=== PATIENT | female | born 1950 | race Caucasian/White ===

== ENCOUNTER → 2017-09-18 06:52 | Outpatient (CLI) | payer MEDICAID, SELFPAY ==
--- NOTE | 2017-09-18 10:15 | STRESSREP ---
Stress Test Report Pharmacologic myocardial perfusion stress test. 66-year-old male with a history of chest pain. Stress protocol: Resting EKG demonstrates normal sinus rhythm with a rate of 69 bpm normal intervals and noted resting blood pressure is 118/80 mmHg. 0.4 mg of regadenoson was infused per usual protocol followed by rapid intravenous saline flush injection. Continuous EKG monitoring was performed. She maintained sinus rhythm throughout the recording. At rest there were no ST or T-wave changes noted suggest abnormal flow reserve at peak infusion no ST or T-wave changes were noted suggest abnormal flow reserve. Resting blood pressure was 118/80 final blood pressure is 120/68 mmHg. Myocardial perfusion protocol: 11.7 mCi of technetium 99m sestamibi was injected at rest. 0.4 mg of adenosine was infused per usual protocol. Peak infusion 32.9 mCi of technetium 99m sestamibi was injected stress images were obtained stress and rest images were reconstructed and compared in the short axis vertical long and horizontal long axis. Gated images were also obtained. Perfusion SPECT analysis: Review of the stress images demonstrate normal uptake of tracer noted in all areas of the myocardium. The resting images similarly demonstrate normal uptake of tracer noted in all areas of myocardium. No areas of reversibility are noted suggest ischemia no previous infarct is noted. Gated SPECT analysis. The gated ejection fraction is noted to be 72%. Conclusion: Normal pharmacologic myocardial perfusion stress test. Preserved ejection fraction.
== END ==
PROVIDERS: Family Provider Family Medicine; PCP Family Medicine; Visit Provider Internal Medicine Cardiovascular Disease
DX: I25.10 Atherosclerotic heart disease of native coronary artery without angina pectoris (principal); I10 Essential (primary) hypertension
CPT/HCPCS: 78452; 93017; A9500; A4216; J2785

== ENCOUNTER → 2018-01-22 07:02 | Outpatient (CLI) | payer MEDICARE, OTHER, SELFPAY ==
[2018-01-22 10:02] LABS: Erythrocyte Sedimentation Rate < 1 mm/hr (0-30)
--- NOTE | 2018-01-22 12:14 | EEG ---
- Electroencephalogram Date of service 01/22/2018 History EEG is being done in this 67 yr F to rule out seizures EEG Description: This is an 18 channel EEG with 10-20 lead placement system. Bipolar montages, Referential and Circumferential montages were reviewed. Photic stimulation and Hyperventilation were performed. The posterior dominant background rhythm is 8 HZ synchronous, symmetric, reacting to eye opening and closing. Photo stimulation elicited normal driving response but no abnormal photoparoxysmal response, Hyperventilation did not elicit any abnormal photoparoxysmal response. EKG artifact noted during the record. Sleep was identified. There was no epileptiform discharges or electrographic seizures noted during this recording. EEG Interpretation This is a normal awake and asleep EEG. There is no epileptiform discharges or electrographic seizures noted during the record.
== END ==
PROVIDERS: Family Provider Family Medicine; PCP Family Medicine; Visit Provider Psychiatry & Neurology Neurology
DX: R55 Syncope and collapse (principal); I49.9 Cardiac arrhythmia, unspecified; Z86.73 Personal history of transient ischemic attack (TIA), and cerebral infarction without residual deficits
CPT/HCPCS: 36415; 85652; 95819

== ENCOUNTER 2018-07-10 09:31 | Observation (INO) | payer MEDICARE, OTHER, SELFPAY ==
[2018-07-10] VITALS (17 sets, daily range): BP systolic 87–162; BP diastolic 49–80; PULSE 79–110; RESP 12–20; TEMP 36.6–37.2; O2SAT 99–100; BMI 23.6; BMI 23.8
--- NOTE | 2018-07-10 09:45 | EKG12_ITS ---
Test Reason : ABNORMAL LABS Blood Pressure : / mmHG Vent. Rate : 096 BPM Atrial Rate : 096 BPM P-R Int : 158 ms QRS Dur : 074 ms QT Int : 332 ms P-R-T Axes : 072 038 073 degrees QTc Int : 419 ms Normal sinus rhythm Normal ECG Confirmed by MATT SAUNDERS, ASHLEY ([id number]), communications editor DIANE XIAO ([id number] on 07/13/2018 9:00:18 AM Referred By: ROLANDA Confirmed By:ASHLEY GUTIERREZ MD
[2018-07-10] MEDS: 0.9% Normal Saline 1,000 ML 1000 ML IV (10:04)
[2018-07-10 10:12] LABS: Absolute Lymphocyte Count 1.23 X10^3/ul (0.83-4.51); Absolute Neutrophil Count 4.8 X10^3/uL (2.0-7.7); Basophil# 0.03 X10^3/uL; Basophil% 0.4 % (0-1); Differential Indicated SCAN CRITERIA MET; Eosinophil# 0.26 X10^3/uL; Eosinophils% 3.8 % (0-5); Hematocrit 25.6 % (37-47); Hemoglobin 7.4 g/dl (12.0-15.0); Lymphocyte # 1.23 X10^3/ul (4.0); Lymphocyte % 18.1 % (19-41); Mean Corp Hgb Conc 28.9 g/gl (32-36); Mean Corpuscular Hgb 30.1 pg (27.0-32.0); Mean Corpuscular Volume 104.1 fL (81-99); Mean Platelet Vol. 9.9 fl (6.2-12.0); Monocyte# 0.52 X10^3/uL; Monocyte% 7.6 % (0-10); Neutrophil # 4.75 X10^3/uL (2.7-7.7); Neutrophil % 69.8 % (47-70); POSITIVE COUNT NO; POSITIVE DIFFERENTIAL NO; POSITIVE MORPHOLOGY YES; Platelet Count 291 K/mm3 (150-450); RBC Distribution Width CV 19.5 % (11.6-14.6); RBC Distribution Width SD 73.5 fl (35.1-43.9); Red Blood Count 2.46 M/mm3 (4.2-5.4); White Blood Count 6.8 K/mm3 (4.4-11.0)
[2018-07-10 10:28] LABS: Anion Gap 9 (5-15); BUN 18 mg/dL (7-18); BUN/Creat Ratio 22.3 RATIO (10-20); Chloride 112 mmol/L (98-107); Creatinine, Serum 0.81 mg/dL (0.55-1.02); EST Glomerular Filtration Rate 76 mL/min (>60); Est Glom Filt Rate - Afr Amer 92 mL/min (>60); Estimated Creatinine Clearance 67.34 ml/min; Glucose 98 mg/dL (74-106); Potassium 4.1 mmol/L (3.5-5.1); Sodium Level 143 mmol/L (136-145)
[2018-07-10 10:33] LABS: Anisocytosis 2+; Hypochromasia 2+; Polychromasia 1+
--- NOTE | 2018-07-10 10:42 | NURSING ---
DR MADELIN ORANTES
--- NOTE | 2018-07-10 10:44 | ED.VISSUMM ---
- ER Visit Summary Date of Service: 07/10/18 Chief Complaint: [Low hemoglobin] History of Present Illness: The patient is a 67 F [resents the emergency department with complaint of a low hemoglobin. Patient was advised by nursing staff and her primary care physician's office to present to the emergency department for evaluation. Patient states that she had been complaining over the last 2 weeks of feeling dizzy as well as short of breath with activity and generally weak therefore she had some blood work performed yesterday. Patient has a history of anemia. Patient had last colonoscopy about [address] Alberto Ibarra and apparently no etiology was noted for bleeding. Patient has history of prior stroke, coronary artery disease, diabetes, hypertension, high cholesterol, bipolar disorder, and schizoaffective disorder. Patient denies any abdominal pain. She denies recent illness. She denies any chest pain.] Physical Examination: [HEENT-PERRLA, EOMI. Cranial nerves II through XII grossly intact. TMs clear. Mucous membranes moist. No adenopathy. Cardiovascular-regular rate and rhythm without murmur or ectopy Lungs-clear to auscultation, chest wall stable without crepitus or subcu emphysema Abdomen-normoactive bowel sounds, soft, nontender, no rebound or rigidity, no peritoneal signs. Rectal exam-no external evidence of bleeding noted. No fissures noted. Stool was dark. No masses palpated in the rectal vault. Extremities-intact ?4, normal range of motion, normal pulses, atraumatic] Test Results: [CBC with differential obtained showed a white blood cell count 6.8, hemoglobin 7.4, hematocrit 26, platelets 291. Chemistries unremarkable. Troponin is less than 0.015. EKG shows sinus rhythm with a ventricular rate of 96 bpm with no acute I segment changes. Orthostatic vital signs were positive and that patient was dizzy with standing. Hemoccult stool is pending.] Emergency Department Course and Treatment: [Patient was type and screen and then type and cross for 2 units of packed red cells. Patient on arrival was noted to be hypotensive with a systolic of 89 and a diastolic of 49. Patient initially was tachycardic with a heart rate of 110.] Treatment Plan: [Admit for blood transfusion] Disposition: [Admit] Impression: [Symptomatic anemia Hypotension] This note was generated with [employer] dictation software. It may contain incorrect words, spelling, and punctuation that were not noted in review of the chart prior to signing ED Disposition - Plan for ED Patient: Chief Complaint: Abn Labs Referrals: Roberto Mcgill MD [Primary Care Provider] -
--- NOTE | 2018-07-10 10:48 | ED.DCSUM_ITS ---
- ER Visit Summary Date of Service: 07/10/18 Chief Complaint: [Low hemoglobin] History of Present Illness: The patient is a 67 F [resents the emergency department with complaint of a low hemoglobin. Patient was advised by nursing staff and her primary care physician's office to present to the emergency dep artment for evaluation. Patient states that she had been complaining over the last 2 weeks of feeling dizzy as well as short of breath with activity and generally weak therefore she had some blood work performed yesterday. Patient has a history of anemia. Patient had last colonoscopy about [address] Alberto Ibarra and apparently no etiology was noted for bleeding. Patient has history of prior stroke, coronary artery disease, diabetes, hypertension, high cholesterol, bipolar disorder, and schizoaffective disorder. Patient denies any abdominal pain. She denies recent illness. She denies any chest pain.] Physical Examination: [HEENT-PERRLA, EOMI. Cranial nerves II through XII grossly intact. TMs clear. Mucous membranes moist. No adenopathy. Cardiovascular-regular rate and rhythm without murmur or ectopy Lungs-clear to auscultation, chest wall stable without crepitus or subcu emphysema Abdomen-normoactive bowel sounds, soft, nontender, no rebound or rigidity, no peritoneal signs. Rectal exam-no external evidence of bleeding noted. No fissures noted. Stool was dark. No masses palpated in the rectal vault. Extremities-intact ?4, normal range of motion, normal pulses, atraumatic] Test Results: [CBC with differential obtained showed a white blood cell count 6.8, hemoglobin 7.4, hematocrit 26, platelets 291. Chemistries unremarkable. Troponin is less than 0.015. EKG shows sinus rhythm with a ventricular rate of 96 bpm with no acute I segment changes. Orthostatic vital signs were positive and that patient was dizzy with standing. Hemoccult stool is pending.] Emergency Department Course and Treatment: [Patient was type and screen and then type and cross for 2 units of packed red cells. Patient on arrival was noted to be hypotensive with a systolic of 89 and a diastolic of 49. Patient initially was tachycardic with a heart rate of 110.] Treatment Plan: [Admit for blood transfusion] Disposition: [Admit] Impression: [Symptomatic anemia Hypotension] This note was generated with Dragon dictation software. It may contain incorrect words, spelling, and punctuation that were not noted in review of the chart prior to signing ED Disposition - Plan for ED Patient: Chief Complaint: Abn Labs Referrals: Roberto Mcgill MD [Primary Care Provider] -
--- NOTE | 2018-07-10 10:49 | PCM.HP.STD ---
Problem List (1) Severe anemia Status: Acute (2) Bipolar disorder Status: Chronic (3) CVA (cerebral infarction) Status: Chronic Comment: Left cerebellar stroke (4) Chronic pain syndrome Status: Chronic (5) Diabetes type 2, controlled Status: Chronic (6) Hyperlipidemia Status: Chronic (7) Hypertension Status: Chronic (8) Overweight (BMI 25.0-29.9) Status: Resolved (9) Schizoaffective disorder Status: Chronic (10) Hypophosphatemia Status: Acute History of Present Illness Date of Admission: 07/10/18 Chief Complaint: dizziness, told by PCP to come to the hospital due to a low HGB The patient is a 67 year old F with a past medical history of hypertension, diabetes mellitus type 2, migraine cephalgia, bipolar disorder, LVH, schizoaffective disorder, 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 Extensive W/U in the past has been negative and she sees Dr. Irwin for iron infusions. Sent to the ED today by PCP for low HGB. She was c/o lightheadedness in the ED but this resolved with fluids. HGB in the ER is 7.4 with macrocytic indices. She denies chest pain, shortness of breath, abdominal pain, nausea, vomiting, diarrhea. She tells me she has a bowel movement every 2-3 days and it is formed. It is somewhat dark but stool in the ER was Hemoccult negative. Her last transfusion was about 5 years ago she states. Her only new medication is an injection she gets from neurology for migraine cephalgia. She was initially tachycardic but this has resolved with fluids. The initial blood pressure was 99/52 lying down and 109/54 standing up. Orthostatic vital signs were negative. Past Medical History Past Medical History (Chronic Problems): Chronic Problems Chronic pain syndrome (Chronic) Hyperlipidemia (Chronic) CVA (cerebral infarction) (Chronic) Left cerebellar stroke Bipolar disorder (Chronic) Schizoaffective disorder (Chronic) Hypertension (Chronic) Diabetes type 2, controlled (Chronic) Allergies carbamazepine [From Tegretol] Allergy (Verified 07/10/18 09:36) Fever and skin rash Penicillins Allergy (Verified 07/10/18 09:36) Rash venom-honey bee [bee venom (honey bee)] Allergy (Verified 07/10/18 09:36) Anaphylaxis ibuprofen [From Motrin] Adverse Reaction (Verified 07/10/18 09:36) Upset Stomach Home Medications: Ambulatory Orders Medication Instructions Recorded Metformin HCl [Glucophage] 1,000 mg PO BIDCM 03/10/14 Risperidone [Risperdal] 2 mg PO QHS 03/10/14 Bupropion HCl [Wellbutrin Sr] 200 mg PO BID 03/07/15 Polyethylene Glycol 3350 [Miralax] 17 gm PO DAILY PRN PRN 03/07/15 Sertraline HCl [Zoloft] 50 mg PO DAILY 03/07/15 Gabapentin 300 mg PO TID 07/12/15 Insulin Glargine [Lantus (BKC)] 4 units SC QHS 06/20/16 Clopidogrel Bisulfate [Plavix] 75 mg PO DAILY 04/13/17 Omeprazole [Prilosec] 40 mg PO DAILY 04/13/17 Pyridoxine HCl [Vitamin B-6] 1 tab PO DAILY 04/13/17 Topiramate [Topamax] 150 mg PO BID 07/10/18 Surgical History: - - Multiple surgeries on right hand Cholecystectomy Appendectomy [facility] Psychiatric History: Bipolar, Post traumatic stress 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 Denies: Chest Pain, Palpitations Respiratory: Denies: Cough, Shortness of breath at rest, Sputum production Gastrointestinal: Denies: Abdominal Pain, Nausea, Vomiting Genitourinary: Denies: Dysuria Musculoskeletal: Denies: Joint Pain, Joint Tenderness Skin: Denies: Rash, Wounds Neurological: Denies: Numbness, Tingling, Focal weakness Psychiatric: Denies: Anxiety, Depression, Homicidal Ideations, Suicidal Ideations Endocrine: Denies: Change in Body Habitus Hematologic/ Lymphatic: Denies: Easy Bruising, Easy Bleeding, Hx of blood clot VTE Information - Inpt Only VTE Present on Admission: No VTE Mechan Device Prophylaxis: None VTE Pharm Prophylaxis ordered?: No Reason prophylaxis not ordered:: Treatment Not Indicated - pt will be discharged today after 2 units of blood have been transfused Patient Problems: Active and Suspected Problems Severe anemia (Acute) Hypophosphatemia (Acute) - Physical Exam General: Alert, Oriented x3, Cooperative, - - pale, not diaphoretic HEENT: Atraumatic, PERRLA, EOMI, Normocephalic Oral: Moist Mucosa Neck: Supple, No JVD, Negative Carotid Bruits, Trachea Midline Lungs: Clear to auscultation, Normal air movement Cardiovascular: Regular rate, Regular Rhythm, No Ectopic Activity, Murmur - She has a systolic MM 2/6 at the second RICS and this radiates to the LVOT and the LLSB and the apex. There is also a systolic MM in the left axilla, No rub noted, No Gallop Abdomen: Bowel Sounds Present, Soft, Non Tender, Non-Distended Extremities: No clubbing, No cyanosis, No edema, Capillary Refill Less than 3 Seconds, No Calf Tenderness, Peripheral Pulses Normal Skin: No rashes, No breakdown Musculoskeletal: No Tenderness to Palpation of Joints or Extremities Neurological: Cranial nerves II-XII grossly intact, Neuro grossly intact Psych/Mental Status: Normal Affect, Appropriate Vital Signs Temp Pulse Resp BP Pulse Ox 99.0 F 95 16 113/55 L 100 07/10/18 10:13 07/10/18 10:13 07/10/18 10:13 07/10/18 10:13 07/10/18 10:13 Oxygen Delivery Method Room Air Weight: 151 lb Body Mass Index (BMI) 23.6 Finger Stick Blood Glucose 180 Laboratory Tests Past 24 Hrs 07/10/18 07/10/18 07/10/18 10:00 10:00 10:00 WBC 6.8 RBC 2.46 L Hgb 7.4 L Hct 25.6 L MCV 104.1 H MCH 30.1 MCHC 28.9 L RDW 19.5 H RDW Differential 73.5 H Plt Count 291 MPV 9.9 Immature Gran % (Auto) 0.300 Neut % (Auto) 69.8 Lymph % (Auto) 18.1 L [place] % (Auto) 7.6 Eos % (Auto) 3.8 Baso % (Auto) 0.4 Absolute Neuts (auto) 4.8 Absolute Lymphs (auto) 1.23 Total Counted Not Reportable Polychromasia 1+ Hypochromasia 2+ Anisocytosis 2+ Sodium 143 Potassium 4.1 Chloride 112 H Carbon Dioxide 22.0 Anion Gap 9 BUN 18 Creatinine 0.81 Estim Creat Clear Calc 67.34 Est GFR (MDRD) Af Amer 92 Est GFR (MDRD) Non-Af 76 BUN/Creatinine Ratio 22.3 H Glucose 98 Calcium 8.0 L Troponin I < 0.015 Blood Type Pending Antibody Screen Pending Assessment/Plan All Active Problems Severe anemia (Acute) Hypophosphatemia (Acute) Overweight (BMI 25.0-29.9) (Resolved) Impressions 1. symptomatic severe anemia 2. Hx of recurrent anemia - gets iron infusions from Dr. Irwin, has had extensive W/U in the past 3. Bipolar disorder 4. schizoaffective disorder 5. DM II - HGBA1C is only 3.5 - likely getting hypoglycemic at home 6. HX of CVA 7. Hypertension 8. Hyperlipidemia 9. Chronic pain syndrome 10. Left ventricular hypertrophy Feeling better with IV fluids and currently denies dizziness, no CP and no SOB Reticulocyte count is appropriately increased and the ferritin is 77......no microcytes. No diarrhea, no N/V, BS's not hyperactive, having a BM every 2-3 days and no blood. Hemoccult stool is negative. Transfused 2 units of packed red blood cells and then discharge the patient home. She will follow-up with Dr. Mcgill on Thursday. Code Visit OBSV E&M: 17807 Initial observation care L2
--- NOTE | 2018-07-10 10:54 | NURSING ---
MED SURG SEVERE ANEMIA, DIZZINESS, HYPOTENSION SEMENTI
[2018-07-10 12:50] LABS: Immature Platelet Fraction 4.7 % (1.0-7.9); RET-HE 22.8 pg (30-35)
[2018-07-10 13:12] LABS: Phosphorus 1.9 mg/dL (2.5-4.9)
[2018-07-10 13:17] LABS: AST(SGOT) 14 U/L (15-37); Alanine Aminotransfer ALT/SGPT 25 U/L (13-56); Albumin, Serum 3.2 g/dL (3.2-5.0); Alkaline Phosphatase 68 U/L (45-117); Bilirubin, Direct 0.07 mg/dL (0.00-0.30); Ferritin 77 ng/mL (8-252); Globulin 2.2 g/dL (2.2-4.2); Iron 43 ug/dL (50-170); Iron Binding Capacity,Total 270 ug/dL (250-450); Magnesium 2.2 mg/dL (1.6-2.6); PERCENT IRON SATURATION 15.9 % (15.0-55.0); Protein, Total 5.4 g/dL (6.4-8.2)
[2018-07-10 13:50] LABS: Hemoglobin A1c < 3.5 % (4.2-6.3)
--- NOTE | 2018-07-10 15:11 | DCINST_ITS ---
- Discharge Diagnoses Current Active Problems: Current Active and Chronic Problems Severe anemia (Acute) Hypophosphatemia (Acute) You will use the following diet at home:: Other - Resume previous diet Your food should be the consistency of: Regular Your liquids should be the consistency of: Regular/Thin Discharge Activity: - - To be as tolerated Call your doctor if you observe: Fever of 101 or Higher, Shortness of breath, Dizziness, Fainting spells, Swelling in the ankles, Chest pain Additional Instructions: 1. Your HGBA1C is only 3.5. I suspect you are having low blood sugars at home. Please talk to Dr. Mcgill about this. He may want to decrease your medications. 2. Follow up with Dr. Mcgill on Thursday. Allergies/Adverse Reactions: Allergies carbamazepine [From Tegretol] Allergy (Verified 07/10/18 12:58) Fever and skin rash Penicillins Allergy (Verified 07/10/18 12:58) Rash venom-honey bee [bee venom (honey bee)] Allergy (Verified 07/10/18 12:58) Anaphylaxis ibuprofen [From Motrin] Adverse Reaction (Verified 07/10/18 12:58) Upset Stomach Medications to take at Discharge Metformin HCl [Glucophage] 1,000 mg PO BIDCM 03/10/14 Risperidone [Risperdal] 2 mg PO QHS 03/10/14 Bupropion HCl [Wellbutrin Sr] 200 mg PO BID 03/07/15 Polyethylene Glycol 3350 [Miralax] 17 gm PO DAILY PRN PRN 03/07/15 Sertraline HCl [Zoloft] 50 mg PO DAILY 03/07/15 Gabapentin 300 mg PO TID 07/12/15 Insulin Glargine [Lantus SoloStar Pen] 4 units SC QHS 06/20/16 Clopidogrel Bisulfate [Plavix] 75 mg PO DAILY 04/13/17 Omeprazole [Prilosec] 40 mg PO DAILY 04/13/17 Pyridoxine HCl [Vitamin B6] 1 tab PO DAILY 04/13/17 Topiramate [Topamax] 150 mg PO BID 07/10/18 Primary Care Physician: Roberto Mcgill MD [Primary Care Provider] - Test Results: Test results from this visit will be discussed in further detail at your follow- up appointment, if applicable. Proposed Discharge Date: 07/10/18
--- NOTE | 2018-07-10 15:13 | PCM.DC.SUM ---
Discharge Date and Diagnosis Date of Admission: 07/10/18 Date of Discharge: 07/10/18 - Primary Discharge Diagnosis Active and Suspected Problems Severe Symptomatic anemia (Acute) Hypophosphatemia (Acute) - Secondary Discharge Diagnosis Chronic Problems Chronic pain syndrome (Chronic) Hyperlipidemia (Chronic) CVA (cerebral infarction) (Chronic) Left cerebellar stroke - 2014 Bipolar disorder (Chronic) Schizoaffective disorder (Chronic) Hypertension (Chronic) Diabetes type 2, controlled (Chronic) - HGBA1C is 3.5% Hx of recurrent anemia - W/U negative in the past Hospital Course and Treatment Imaging Results: Laboratory Results - last 24 hr 07/10/18 07/10/18 10:00 21:25 POC Glucose 82 Crossmatch See Detail Laboratory Tests 07/10/18 07/10/18 07/10/18 Range/Units 21:25 16:00 12:33 WBC (4.4-11.0) K/mm3 RBC (4.2-5.4) M/mm3 Hgb (12.0-15.0) g/dl Hct (37-47) % MCV (81-99) fL MCH (27.0-32.0) pg MCHC (32-36) g/gl RDW (11.6-14.6) % RDW Differential (35.1-43.9) fl Plt Count (150-450) K/mm3 MPV (6.2-12.0) fl Immature Gran % (Auto) (0.0-0.9) % Neut % (Auto) (47-70) % Lymph % (Auto) (19-41) % [place] % (Auto) (0-10) % Eos % (Auto) (0-5) % Baso % (Auto) (0-1) % Absolute Neuts (auto) (2.0-7.7) X10^3/uL Absolute Lymphs (auto) (0.83-4.51) X10^3/ul Total Counted Immature Plt Fraction (1.0-7.9) % Polychromasia Hypochromasia Anisocytosis Retic Count (0.5-1.5) % Immature Retic Fraction (3.00-15.90) % Retic Hgb Equivalent (30-35) pg Sodium (136-145) mmol/L Potassium (3.5-5.1) mmol/L Chloride (98-107) mmol/L Carbon Dioxide (21.0-32.0) mmol/L Anion Gap (5-15) BUN (7-18) mg/dL Creatinine (0.55-1.02) mg/dL Estim Creat Clear Calc ml/min Est GFR (MDRD) Af Amer (>60) mL/min Est GFR (MDRD) Non-Af (>60) mL/min BUN/Creatinine Ratio (10-20) RATIO Glucose (74-106) mg/dL Hemoglobin A1c < 3.5 L (4.2-6.3) % Calcium (8.5-10.1) mg/dL Phosphorus (2.5-4.9) mg/dL Magnesium (1.6-2.6) mg/dL Iron (50-170) ug/dL TIBC (250-450) ug/dL Iron Saturation (15.0-55.0) % Ferritin (8-252) ng/mL Total Bilirubin (0.20-1.00) mg/dL Direct Bilirubin (0.00-0.30) mg/dL AST (15-37) U/L ALT (13-56) U/L Alkaline Phosphatase (45-117) U/L Troponin I (<0.045) ng/mL Total Protein (6.4-8.2) g/dL Albumin (3.2-5.0) g/dL Globulin (2.2-4.2) g/dL POC Glucose 82 159 H (70-110) mg/dL Blood Type Antibody Screen Crossmatch 07/10/18 07/10/18 07/10/18 Range/Units 12:33 12:33 10:00 WBC (4.4-11.0) K/mm3 RBC (4.2-5.4) M/mm3 Hgb (12.0-15.0) g/dl Hct (37-47) % MCV (81-99) fL MCH (27.0-32.0) pg MCHC (32-36) g/gl RDW (11.6-14.6) % RDW Differential (35.1-43.9) fl Plt Count (150-450) K/mm3 MPV (6.2-12.0) fl Immature Gran % (Auto) (0.0-0.9) % Neut % (Auto) (47-70) % Lymph % (Auto) (19-41) % [place] % (Auto) (0-10) % Eos % (Auto) (0-5) % Baso % (Auto) (0-1) % Absolute Neuts (auto) (2.0-7.7) X10^3/uL Absolute Lymphs (auto) (0.83-4.51) X10^3/ul Total Counted Immature Plt Fraction 4.7 (1.0-7.9) % Polychromasia Hypochromasia Anisocytosis Retic Count 7.10 H (0.5-1.5) % Immature Retic Fraction 21.50 H (3.00-15.90) % Retic Hgb Equivalent 22.8 L (30-35) pg Sodium (136-145) mmol/L Potassium (3.5-5.1) mmol/L Chloride (98-107) mmol/L Carbon Dioxide (21.0-32.0) mmol/L Anion Gap (5-15) BUN (7-18) mg/dL Creatinine (0.55-1.02) mg/dL Estim Creat Clear Calc ml/min Est GFR (MDRD) Af Amer (>60) mL/min Est GFR (MDRD) Non-Af (>60) mL/min BUN/Creatinine Ratio (10-20) RATIO Glucose (74-106) mg/dL Hemoglobin A1c (4.2-6.3) % Calcium (8.5-10.1) mg/dL Phosphorus 1.9 L (2.5-4.9) mg/dL Magnesium 2.2 (1.6-2.6) mg/dL Iron 43 L (50-170) ug/dL TIBC 270 (250-450) ug/dL Iron Saturation 15.9 (15.0-55.0) % Ferritin 77 (8-252) ng/mL Total Bilirubin 0.20 (0.20-1.00) mg/dL Direct Bilirubin 0.07 (0.00-0.30) mg/dL AST 14 L (15-37) U/L ALT 25 (13-56) U/L Alkaline Phosphatase 68 (45-117) U/L Troponin I (<0.045) ng/mL Total Protein 5.4 L (6.4-8.2) g/dL Albumin 3.2 (3.2-5.0) g/dL Globulin 2.2 (2.2-4.2) g/dL POC Glucose (70-110) mg/dL Blood Type Antibody Screen Crossmatch 07/10/18 07/10/18 07/10/18 Range/Units 10:00 10:00 10:00 WBC (4.4-11.0) K/mm3 RBC (4.2-5.4) M/mm3 Hgb (12.0-15.0) g/dl Hct (37-47) % MCV (81-99) fL MCH (27.0-32.0) pg MCHC (32-36) g/gl RDW (11.6-14.6) % RDW Differential (35.1-43.9) fl Plt Count (150-450) K/mm3 MPV (6.2-12.0) fl Immature Gran % (Auto) (0.0-0.9) % Neut % (Auto) (47-70) % Lymph % (Auto) (19-41) % [place] % (Auto) (0-10) % Eos % (Auto) (0-5) % Baso % (Auto) (0-1) % Absolute Neuts (auto) (2.0-7.7) X10^3/uL Absolute Lymphs (auto) (0.83-4.51) X10^3/ul Total Counted Immature Plt Fraction (1.0-7.9) % Polychromasia Hypochromasia Anisocytosis Retic Count (0.5-1.5) % Immature Retic Fraction (3.00-15.90) % Retic Hgb Equivalent (30-35) pg Sodium 143 (136-145) mmol/L Potassium 4.1 (3.5-5.1) mmol/L Chloride 112 H (98-107) mmol/L Carbon Dioxide 22.0 (21.0-32.0) mmol/L Anion Gap 9 (5-15) BUN 18 (7-18) mg/dL Creatinine 0.81 (0.55-1.02) mg/dL Estim Creat Clear Calc 67.34 ml/min Est GFR (MDRD) Af Amer 92 (>60) mL/min Est GFR (MDRD) Non-Af 76 (>60) mL/min BUN/Creatinine Ratio 22.3 H (10-20) RATIO Glucose 98 (74-106) mg/dL Hemoglobin A1c (4.2-6.3) % Calcium 8.0 L (8.5-10.1) mg/dL Phosphorus (2.5-4.9) mg/dL Magnesium (1.6-2.6) mg/dL Iron (50-170) ug/dL TIBC (250-450) ug/dL Iron Saturation (15.0-55.0) % Ferritin (8-252) ng/mL Total Bilirubin (0.20-1.00) mg/dL Direct Bilirubin (0.00-0.30) mg/dL AST (15-37) U/L ALT (13-56) U/L Alkaline Phosphatase (45-117) U/L Troponin I < 0.015 (<0.045) ng/mL Total Protein (6.4-8.2) g/dL Albumin (3.2-5.0) g/dL Globulin (2.2-4.2) g/dL POC Glucose (70-110) mg/dL Blood Type O POSITIVE Antibody Screen NEGATIVE Crossmatch See Detail 07/10/18 Range/Units 10:00 WBC 6.8 (4.4-11.0) K/mm3 RBC 2.46 L (4.2-5.4) M/mm3 Hgb 7.4 L (12.0-15.0) g/dl Hct 25.6 L (37-47) % MCV 104.1 H (81-99) fL MCH 30.1 (27.0-32.0) pg MCHC 28.9 L (32-36) g/gl RDW 19.5 H (11.6-14.6) % RDW Differential 73.5 H (35.1-43.9) fl Plt Count 291 (150-450) K/mm3 MPV 9.9 (6.2-12.0) fl Immature Gran % (Auto) 0.300 (0.0-0.9) % Neut % (Auto) 69.8 (47-70) % Lymph % (Auto) 18.1 L (19-41) % [place] % (Auto) 7.6 (0-10) % Eos % (Auto) 3.8 (0-5) % Baso % (Auto) 0.4 (0-1) % Absolute Neuts (auto) 4.8 (2.0-7.7) X10^3/uL Absolute Lymphs (auto) 1.23 (0.83-4.51) X10^3/ul Total Counted Not Reportable Immature Plt Fraction (1.0-7.9) % Polychromasia 1+ Hypochromasia 2+ Anisocytosis 2+ Retic Count (0.5-1.5) % Immature Retic Fraction (3.00-15.90) % Retic Hgb Equivalent (30-35) pg Sodium (136-145) mmol/L Potassium (3.5-5.1) mmol/L Chloride (98-107) mmol/L Carbon Dioxide (21.0-32.0) mmol/L Anion Gap (5-15) BUN (7-18) mg/dL Creatinine (0.55-1.02) mg/dL Estim Creat Clear Calc ml/min Est GFR (MDRD) Af Amer (>60) mL/min Est GFR (MDRD) Non-Af (>60) mL/min BUN/Creatinine Ratio (10-20) RATIO Glucose (74-106) mg/dL Hemoglobin A1c (4.2-6.3) % Calcium (8.5-10.1) mg/dL Phosphorus (2.5-4.9) mg/dL Magnesium (1.6-2.6) mg/dL Iron (50-170) ug/dL TIBC (250-450) ug/dL Iron Saturation (15.0-55.0) % Ferritin (8-252) ng/mL Total Bilirubin (0.20-1.00) mg/dL Direct Bilirubin (0.00-0.30) mg/dL AST (15-37) U/L ALT (13-56) U/L Alkaline Phosphatase (45-117) U/L Troponin I (<0.045) ng/mL Total Protein (6.4-8.2) g/dL Albumin (3.2-5.0) g/dL Globulin (2.2-4.2) g/dL POC Glucose (70-110) mg/dL Blood Type Antibody Screen Crossmatch none Operations: None Procedures: None Summary of Care Provided: The patient is a 67 year old F with a past medical history of hypertension, diabetes mellitus type 2, migraine cephalgia, bipolar disorder, LVH, schizoaffective disorder, 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 Extensive W/U in the past has been negative and she sees Dr. Irwin for iron infusions. She was sent to the ED on 07/10/18 by her PCP for low HGB. She was c/o lightheadedness in the ED but this resolved with fluids. HGB in the ER is 7.4 with macrocytic indices. She denied chest pain, shortness of breath, abdominal pain, nausea, vomiting, diarrhea. She told me she has a bowel movement every 2-3 days and it is formed. It is somewhat dark but stool in the ER was Hemoccult negative. Her last transfusion was about 5 years ago. Her only new medication is an injection she gets from neurology for migraine cephalgia. She was initially tachycardic but this resolved with fluids. The initial blood pressure was 99/52 lying down and 109/54 standing up. Orthostatic vital signs were negative. She was admitted for observation and received 2 units of PRBC's. she demanded to be discharged after the transfusions because she had no one to take care of her dog. She was afebrile throughout the transfusions and vital signs were stable. Her blood pressure at discharge was 141/58 and her respiratory rate was 16. She was on 100% saturated on room air. She plans on following up with Dr. Mcgill on Thursday to have a follow-up CBC. She has a systolic MM that sounds as though she may have aortic stenosis. If she has not been worked up for this in the past would consider and ECHO as OP. PHYSICAL EXAM: GENERAL: alert, oriented X 3, Cooperative, NAD ORAL: moist mucosa, no mucosal lesions NECK: No JVD, supple, trachea midline LUNGS: CTA, symmetric chest expansion HEART: RRR, Normal S1 and S2, no rub, no gallop, he has a 2/6 systolic murmur at the second right intercostal space and it radiated to the left ventricular outflow tract, lower left sternal border and apex. There was also a systolic murmur in the left axilla. ABDOMEN: soft, NT, ND, BS present, no guarding with palpation EXTREMITIES: no edema, no cyanosis, no calf tenderness SKIN: No rashes, no breakdown NEUROLOGIC: no focal neurologic deficits PSYCH: appropriate, normal affect, pleasant This note was generated with [employer] dictation software. It may contain incorrect words, spelling, and punctuation that were not noted in checking the note before signing. - Physical Exam Vital Signs Temp Pulse Resp BP Pulse Ox 98.4 F 87 20 H 140/70 H 100 07/10/18 15:04 07/10/18 15:04 07/10/18 15:04 07/10/18 15:04 07/10/18 15:04 Oxygen Delivery Method Room Air Weight: 152 lb 1 oz Body Mass Index (BMI) 23.8 Finger Stick Blood Glucose 180 Intake and Output for Last 24 Hours 07/08/18 07/09/18 07/10/18 23:59 23:59 23:59 Intake Total 0 / 0 Balance 0 / 0 Microbiology Past 72 Hours 07/10/18 Unknown Stool Occult Blood (LUX) - Final Stool Laboratory Tests Past 24 Hrs 07/10/18 07/10/18 07/10/18 10:00 10:00 10:00 WBC 6.8 RBC 2.46 L Hgb 7.4 L Hct 25.6 L MCV 104.1 H MCH 30.1 MCHC 28.9 L RDW 19.5 H RDW Differential 73.5 H Plt Count 291 MPV 9.9 Immature Gran % (Auto) 0.300 Neut % (Auto) 69.8 Lymph % (Auto) 18.1 L [place] % (Auto) 7.6 Eos % (Auto) 3.8 Baso % (Auto) 0.4 Absolute Neuts (auto) 4.8 Absolute Lymphs (auto) 1.23 Total Counted Not Reportable Immature Plt Fraction Polychromasia 1+ Hypochromasia 2+ Anisocytosis 2+ Retic Count Immature Retic Fraction Retic Hgb Equivalent Sodium 143 Potassium 4.1 Chloride 112 H Carbon Dioxide 22.0 Anion Gap 9 BUN 18 Creatinine 0.81 Estim Creat Clear Calc 67.34 Est GFR (MDRD) Af Amer 92 Est GFR (MDRD) Non-Af 76 BUN/Creatinine Ratio 22.3 H Glucose 98 Hemoglobin A1c Calcium 8.0 L Phosphorus Magnesium Iron TIBC Iron Saturation Ferritin Total Bilirubin Direct Bilirubin AST ALT Alkaline Phosphatase Troponin I < 0.015 Total Protein Albumin Globulin Vitamin B12 RBC Folate Hemolysate RBC Folate Hematocrit Blood Type O POSITIVE Antibody Screen NEGATIVE Crossmatch 07/10/18 07/10/18 07/10/18 10:00 10:00 12:33 WBC RBC Hgb Hct MCV MCH MCHC RDW RDW Differential Plt Count MPV Immature Gran % (Auto) Neut % (Auto) Lymph % (Auto) [place] % (Auto) Eos % (Auto) Baso % (Auto) Absolute Neuts (auto) Absolute Lymphs (auto) Total Counted Immature Plt Fraction 4.7 Polychromasia Hypochromasia Anisocytosis Retic Count 7.10 H Immature Retic Fraction 21.50 H Retic Hgb Equivalent 22.8 L Sodium Potassium Chloride Carbon Dioxide Anion Gap BUN Creatinine Estim Creat Clear Calc Est GFR (MDRD) Af Amer Est GFR (MDRD) Non-Af BUN/Creatinine Ratio Glucose Hemoglobin A1c Calcium Phosphorus Magnesium 2.2 Iron 43 L TIBC 270 Iron Saturation 15.9 Ferritin 77 Total Bilirubin 0.20 Direct Bilirubin 0.07 AST 14 L ALT 25 Alkaline Phosphatase 68 Troponin I Total Protein 5.4 L Albumin 3.2 Globulin 2.2 Vitamin B12 RBC Folate Hemolysate RBC Folate Hematocrit Blood Type Antibody Screen Crossmatch See Detail 07/10/18 07/10/18 07/10/18 12:33 12:33 12:33 WBC RBC Hgb Hct MCV MCH MCHC RDW RDW Differential Plt Count MPV Immature Gran % (Auto) Neut % (Auto) Lymph % (Auto) [place] % (Auto) Eos % (Auto) Baso % (Auto) Absolute Neuts (auto) Absolute Lymphs (auto) Total Counted Immature Plt Fraction Polychromasia Hypochromasia Anisocytosis Retic Count Immature Retic Fraction Retic Hgb Equivalent Sodium Potassium Chloride Carbon Dioxide Anion Gap BUN Creatinine Estim Creat Clear Calc Est GFR (MDRD) Af Amer Est GFR (MDRD) Non-Af BUN/Creatinine Ratio Glucose Hemoglobin A1c < 3.5 L Calcium Phosphorus 1.9 L Magnesium Iron TIBC Iron Saturation Ferritin Total Bilirubin Direct Bilirubin AST ALT Alkaline Phosphatase Troponin I Total Protein Albumin Globulin Vitamin B12 Pending RBC Folate Hemolysate RBC Folate Hematocrit Blood Type Antibody Screen Crossmatch 07/10/18 12:33 WBC RBC Hgb Hct MCV MCH MCHC RDW RDW Differential Plt Count MPV Immature Gran % (Auto) Neut % (Auto) Lymph % (Auto) [place] % (Auto) Eos % (Auto) Baso % (Auto) Absolute Neuts (auto) Absolute Lymphs (auto) Total Counted Immature Plt Fraction Polychromasia Hypochromasia Anisocytosis Retic Count Immature Retic Fraction Retic Hgb Equivalent Sodium Potassium Chloride Carbon Dioxide Anion Gap BUN Creatinine Estim Creat Clear Calc Est GFR (MDRD) Af Amer Est GFR (MDRD) Non-Af BUN/Creatinine Ratio Glucose Hemoglobin A1c Calcium Phosphorus Magnesium Iron TIBC Iron Saturation Ferritin Total Bilirubin Direct Bilirubin AST ALT Alkaline Phosphatase Troponin I Total Protein Albumin Globulin Vitamin B12 RBC Folate Hemolysate Pending RBC Folate Pending Hematocrit Pending Blood Type Antibody Screen Crossmatch Discharge Activity: - - To be as tolerated Call your doctor if you observe: Fever of 101 or Higher, Shortness of breath, Dizziness, Fainting spells, Swelling in the ankles, Chest pain Home Medications: Medications to take at Discharge Metformin HCl [Glucophage] 1,000 mg PO BIDCM 03/10/14 Risperidone [Risperdal] 2 mg PO QHS 03/10/14 Bupropion HCl [Wellbutrin Sr] 200 mg PO BID 03/07/15 Polyethylene Glycol 3350 [Miralax] 17 gm PO DAILY PRN PRN 03/07/15 Sertraline HCl [Zoloft] 50 mg PO DAILY 03/07/15 Gabapentin 300 mg PO TID 07/12/15 Insulin Glargine [Lantus SoloStar Pen] 4 units SC QHS 06/20/16 Clopidogrel Bisulfate [Plavix] 75 mg PO DAILY 04/13/17 Omeprazole [Prilosec] 40 mg PO DAILY 04/13/17 Pyridoxine HCl [Vitamin B6] 1 tab PO DAILY 04/13/17 Topiramate [Topamax] 150 mg PO BID 07/10/18 Primary Care Physician: Roberto Mcgill MD [Primary Care Provider] - Disposition: Home Minutes spent on discharge:: 25 Patient Condition:: Good Medical Necessity - Tobacco Use Smoking Status: Never smoker Tobacco Use: Non-smoker Meaningful Use Info Meaningful Use Diagnoses (Choose all that apply): None applicable Code Visit OBSV E&M: 21770 Observation care discharge
--- NOTE | 2018-07-10 15:14 | CM.UR ---
Reviewed H&P. noted that plan was to transfuse 2 units then dc w/follow up with Dr. Mcgill on Thursday. No s/s of gi bleeding. spoke with Dr. Sloan due to initially ordered for IP status. Verbal order obtained at this time to change to OBS as of admission. Daphne Orozco RN, CCM.
[2018-07-10] MEDS: Gabapentin 300 MG Capsule PO (16:04)
[2018-07-10] MEDS: Na Biphos/Potassium Phosphate PACKET 2 PACKET PO ×2 (16:04→19:35)
[2018-07-10] MEDS: metFORMIN HCl 1,000 MG Tablet 1000 MG PO (16:05)
[2018-07-10] MEDS: Glucerna Shake 120 ML LIQUID PO (16:07)
[2018-07-10 16:15] LABS: Bedside Glucose 159 mg/dL (70-110)
[2018-07-10] MEDS: RisperiDONE 2 MG Tablet PO (21:27)
[2018-07-10] MEDS: buPROPion (SR) 100 MG TABLET.SA 200 MG PO (21:27)
[2018-07-10] MEDS: 0.9% NaCl Peripheral Flush Adult/Peds IV (21:27)
[2018-07-10] MEDS: Topiramate 50 MG Tablet 150 MG PO (21:27)
[2018-07-10 21:31] LABS: Bedside Glucose 82 mg/dL (70-110)
--- NOTE | 2018-07-10 21:55 | NURSING ---
d/c pt home at this time. pt stable, belongings with pt. [employer] took pt to main entrance friend waiting to pick her up.
[2018-07-12 10:35] LABS: Vitamin B12 188 pg/mL (211-911)
[2018-07-12 20:07] LABS: Folate, Hemolysate Test 277.7 ng/mL (Not Estab.); Folate, RBC (Hct) Test 22.4 % (34.0-46.6)
[2018-07-13 08:38] LABS: Folates, RBC Test 1240 ng/mL (>498)
== END 2018-07-10 21:50 | disposition home or self-care (01) ==
LOC: ED 11:23 → MS3 13:50
PROVIDERS: Admitting Provider Internal Medicine; Emergency Provider Emergency Medicine; Family Provider Family Medicine; PCP Family Medicine; Visit Provider Internal Medicine
DX: D64.9 Anemia, unspecified (principal); E83.39 Other disorders of phosphorus metabolism; E78.5 Hyperlipidemia, unspecified; I25.10 Atherosclerotic heart disease of native coronary artery without angina pectoris; E11.9 Type 2 diabetes mellitus without complications; I10 Essential (primary) hypertension; G89.4 Chronic pain syndrome; F31.9 Bipolar disorder, unspecified; F25.9 Schizoaffective disorder, unspecified; Z86.73 Personal history of transient ischemic attack (TIA), and cerebral infarction without residual deficits; Z79.4 Long term (current) use of insulin; Z79.02 Long term (current) use of antithrombotics/antiplatelets; Z79.899 Other long term (current) drug therapy
CPT/HCPCS: 36415; 36430; 80048; 80076; 82274; 82607; 82728; 82747; 82962; 83036; 83540; 83550; 83735; 84100; 84484; 85014; 85025; 85045; 86850; 86900; 86920; 86922; 93005; 96360; 99218; 99283; J7040; P9016; A4216; G0378

== ENCOUNTER → 2018-07-19 12:29 | Outpatient (CLI) | payer MEDICARE, OTHER, SELFPAY ==
[2018-07-10 12:06] VITALS: BMI 23.8
== END ==
PROVIDERS: Family Provider Family Medicine; PCP Family Medicine; Referring Provider Family Medicine; Visit Provider Family Medicine
DX: R07.9 Chest pain, unspecified (principal)
CPT/HCPCS: 84484

== ENCOUNTER 2019-09-10 15:20 | Emergency (ER) | payer MEDICARE, OTHER, SELFPAY ==
[2018-07-10 12:06] VITALS: BMI 23.8
[2019-09-10 15:21] VITALS: BP 165/85; PULSE 72; RESP 16; TEMP 37.1; O2SAT 97; BMI 25.9
--- NOTE | 2019-09-10 15:49 | CT_ITS ---
STUDY: CT BRAIN WITHOUT CONTRAST REASON FOR EXAM: Female, 68 years old. Head injury, DIZZY and amp; fell hitting left eye, on Plavix, No LOC. RADIATION DOSAGE (If Supplied By Facility): CTDIvol = ( 44.99 ) mGy, DLP = ( 779.24 ) mGycm TECHNIQUE: Transaxial CT imaging of the brain was performed without administration of intravenous contrast material. Individualized dose optimization techniques were used for this CT. COMPARISON: 03/22/2014 FINDINGS: Normal soft tissue structures. Normal calvarium. There is mild cerebral atrophy with widening of the extra-axial spaces and ventricular dilatation. Normal white matter tracts of the cerebral hemispheres. Normal basal ganglia and thalami. Normal brainstem. Normal cerebellum. There is no intracranial hemorrhage. There are no findings of an acute ischemic infarction. Normal visualized paranasal sinuses. CT/Brain/Head without Contrast IMPRESSION: Chronic involutional changes of the brain. Electronically Signed: Alberto Smalls MD at 16:55 EST Tel , Service support ,
--- NOTE | 2019-09-10 15:50 | CT_ITS ---
STUDY: CT FACIAL BONES WITHOUT CONTRAST REASON FOR EXAM: Female, 68 years old. Head injury, DIZZY and amp; fell hitting left eye, on Plavix, No LOC. RADIATION DOSAGE (If Supplied By Facility): CTDIvol = ( 29.38 ) mGy, DLP = ( 554.80 ) mGycm TECHNIQUE: The patient was scanned in a multi detector CT scanner. Sagittal and coronal images were reconstructed. Individualized dose optimization techniques were used for this CT. COMPARISON: None. FINDINGS: Some soft tissue swelling about the lateral aspect of the left orbit and superficial to the left zygomatic arch. Normal orbital rajan and orbital contents. Normal nasal bones and anterior nasal spine. Normal facial bones. There is no demonstrated fracture. Normal visualized paranasal sinuses. CT/Sinus/Facial Bone IMPRESSION: Normal unenhanced CT of the facial bones. Electronically Signed: Alberto Smalls MD at 16:51 EST Tel , Service support ,
--- NOTE | 2019-09-10 15:53 | ED.DCSUM_ITS ---
- ER Visit Summary Date of Service: 09/10/19 Chief Complaint: Fall History of Present Illness: The patient is a 68 F who presents after a fall that occurred 1-1/2 hours prior to arrival. Patient states she got dizzy and fell. Patient states she hit her left periorbital area. Patient denies any loss of co nsciousness. Patient denies any paresthesias or weakness. Patient does admit to some diplopia when she looks to the left. Patient states her last tetanus was within 10 years. Patient denies any other injuries. Patient admits to some mild pain in her chest that comes and goes. Patient denies any shortness of breath or cough. Patient admits to subjective chills. Physical Examination: Vital signs are stable. Patient is afebrile. Patient is in no acute distress. Pupils are equal, round, and reactive to light bilaterally. Extraocular muscles are intact. However the patient did complain of some diplopia when she looks to the left. There is tenderness, edema, and ecchymosis over the left periorbital area. There is no bony crepitance or step- off. Cranial nerves II through XII are intact. There are no focal motor or sensory deficits noted. Oral mucosa is pink and moist. Neck is supple. Trachea is midline. There is no JVD. Heart was regular rate and rhythm. Lungs are clear and equal bilaterally. Abdomen is soft and nontender. Extremities are intact. There is no deformity noted. There is full range of motion of the upper and lower extremities. There is no calf tenderness or edema. Test Results: CT scan of the brain was obtained. There is no acute bleeding noted. CT scan of the orbits was obtained. There is no acute fracture. CBC and basic metabolic profile were obtained were within normal limits. Emergency Department Course and Treatment: Orthostatic vital signs were obtained were negative. However, patient states she still felt off balance with standing. Patient wants to go home. Patient was instructed to stand up and sit up slowly. Patient was instructed to follow-up with her primary care physician in 5 to 7 days. Patient understood and was agreeable with the plan. All questions were answered. Disposition: Discharge home Impression: Facial contusion This note was generated with [employer] dictation software. It may contain incorrect words, spelling, and punctuation that were not noted in review of the chart prior to signing ED Disposition - Plan for ED Patient: Disposition: Home or Assisted Living Diagnosis: Facial contusion Instructions: FACIAL CONTUSION, No Wakeup Referrals: Roberto Mcgill MD [Primary Care Provider] - 3-5 Days
[2019-09-10 16:17] LABS: Absolute Lymphocyte Count 1.69 X10^3/uL (0.83-4.51); Absolute Neutrophil Count 4.6 X10^3/uL (2.0-7.7); Basophil# 0.04 X10^3/uL; Basophil% 0.5 % (0-1); Eosinophil# 0.34 X10^3/uL; Eosinophils% 4.7 % (0-5); Hematocrit 39.3 % (37-47); Hemoglobin 12.3 g/dL (12.0-15.0); Lymphocyte # 1.69 X10^3/ul (4.0); Lymphocyte % 23.2 % (19-41); Mean Corp Hgb Conc 31.3 g/dL (32-36); Mean Corpuscular Hgb 27.6 pg (27.0-32.0); Mean Corpuscular Volume 88.3 fL (81-99); Mean Platelet Vol. 11.5 fl (6.2-12.0); Monocyte# 0.63 X10^3/uL; Monocyte% 8.6 % (0-10); NRBC Flagged by Analyzer 0 % (0-5); Neutrophil # 4.56 X10^3/uL (2.7-7.7); Neutrophil % 62.5 % (47-70); Platelet Count 177 K/mm3 (150-450); RBC Distribution Width CV 14.8 % (11.6-14.6); RBC Distribution Width SD 47.7 fl (35.1-43.9); Red Blood Count 4.45 M/mm3 (4.2-5.4); White Blood Count 7.3 K/mm3 (4.4-11.0)
[2019-09-10 16:35] LABS: ALB/GLOB Ratio 1.4 RATIO (0.9-2.4); AST(SGOT) 13 U/L (15-37); Alanine Aminotransfer ALT/SGPT 26 U/L (13-56); Albumin, Serum 3.9 g/dL (3.2-5.0); Alkaline Phosphatase 99 U/L (45-117); Anion Gap 5 (5-15); BUN 14 mg/dL (7-18); BUN/Creat Ratio 17.1 RATIO (10-20); Calcium,Total 8.7 mg/dL (8.5-10.1); Chloride 110 mmol/L (98-107); Creatinine, Serum 0.82 mg/dL (0.55-1.02); EST Glomerular Filtration Rate 74 mL/min (>60); Est Glom Filt Rate - Afr Amer 90 mL/min (>60); Estimated Creatinine Clearance 65.63 ml/min; Globulin 2.7 g/dL (2.2-4.2); Glucose 117 mg/dL (74-106); Potassium 3.9 mmol/L (3.5-5.1); Protein, Total 6.6 g/dL (6.4-8.2); Sodium Level 143 mmol/L (136-145)
[2019-09-10 17:18] VITALS: RESP 16
[2019-09-10 17:28] VITALS: BP 154/78; BP 173/78; PULSE 73; PULSE 75; RESP 16; O2SAT 98
== END 2019-09-10 17:50 | disposition home or self-care (01) ==
PROVIDERS: Emergency Provider Emergency Medicine; PCP Family Medicine
DX: S00.12XA Contusion of left eyelid and periocular area, initial encounter (principal); W19.XXXA Unspecified fall, initial encounter; Y93.89 Activity, other specified; Y92.9 Unspecified place or not applicable; I25.10 Atherosclerotic heart disease of native coronary artery without angina pectoris; I10 Essential (primary) hypertension; E11.9 Type 2 diabetes mellitus without complications; F25.9 Schizoaffective disorder, unspecified; F43.10 Post-traumatic stress disorder, unspecified; Z79.84 Long term (current) use of oral hypoglycemic drugs; Z79.02 Long term (current) use of antithrombotics/antiplatelets; Z86.73 Personal history of transient ischemic attack (TIA), and cerebral infarction without residual deficits
CPT/HCPCS: 70450; 70486; 80053; 85025; 99284; A4216

== ENCOUNTER 2020-03-16 19:53 | Observation (INO) | payer MEDICARE, SELFPAY ==
[2020-03-16] VITALS (7 sets, daily range): BP systolic 111–137; BP diastolic 46–69; PULSE 71–78; RESP 12–16; TEMP 36.6–36.9; O2SAT 96–97; BMI 27.5; BMI 25.9
--- NOTE | 2020-03-16 20:15 | EKG12_ITS ---
Test Reason : CP Blood Pressure : / mmHG Vent. Rate : 074 BPM Atrial Rate : 074 BPM P-R Int : 182 ms QRS Dur : 082 ms QT Int : 376 ms P-R-T Axes : 068 022 076 degrees QTc Int : 417 ms Normal sinus rhythm Normal ECG Confirmed by MATT SAUNDERS, ASHLEY ([id number]), photographic editor FREDDY GARZA ([id number]) on 03/19/2020 1:19:44 PM Referred By: Confirmed By:ASHLEY GUTIERREZ MD
--- NOTE | 2020-03-16 20:35 | RAD_ITS ---
STUDY: X-RAY CHEST REASON FOR EXAM: Female, 69 years old. intermittent chest pain since this am. TECHNIQUE: Single AP portable view of the chest. COMPARISON: Previous study of 03/07/2015 FINDINGS: hospital monitor leads are seen. The lungs are clear and expanded. There is no demonstrated pleural abnormality. Normal size heart. Normal mediastinum and gene. Normal visualized pulmonary arteries. There are calcified plaques of the aortic arch. Normal visualized thoracic spine. There is a soft tissue calcification lateral to the right humeral head consistent with calcific tendinitis/bursitis. There is no demonstrated abnormality of the visualized soft tissue structures of the upper abdomen. RAD/Chest 1 View (Portable) IMPRESSION: Calcified plaques of the aortic arch. Calcific tendinitis/bursitis of the right shoulder joint. No acute cardiopulmonary disease process is seen. Electronically Signed: Flaco Villar MD at 20:50 EDT , Service support ,
[2020-03-16 20:43] LABS: Absolute Lymphocyte Count 0.76 X10^3/uL (0.83-4.51); Absolute Neutrophil Count 3.9 X10^3/uL (2.0-7.7); Basophil# 0.01 X10^3/uL; Basophil% 0.2 % (0-1); Eosinophils% 5.4 % (0-5); Hematocrit 34.5 % (37-47); Hemoglobin 10.6 g/dL (12.0-15.0); Lymphocyte # 0.76 X10^3/ul (4.0); Lymphocyte % 13.6 % (19-41); Mean Corp Hgb Conc 30.7 g/dL (32-36); Mean Corpuscular Hgb 24.5 pg (27.0-32.0); Mean Corpuscular Volume 79.7 fL (81-99); Mean Platelet Vol. 11.4 fl (6.2-12.0); Monocyte# 0.61 X10^3/uL; Monocyte% 10.9 % (0-10); NRBC Flagged by Analyzer 0 % (0-5); Neutrophil # 3.89 X10^3/uL (2.7-7.7); Neutrophil % 69.5 % (47-70); Platelet Count 223 K/mm3 (150-450); RBC Distribution Width CV 15.4 % (11.6-14.6); RBC Distribution Width SD 44.1 fl (35.1-43.9); Red Blood Count 4.33 M/mm3 (4.2-5.4); White Blood Count 5.6 K/mm3 (4.4-11.0)
[2020-03-16 21:03] LABS: Anion Gap 9 (5-15); BUN 18 mg/dL (7-18); BUN/Creat Ratio 14.2 RATIO (10-20); Calcium,Total 8.9 mg/dL (8.5-10.1); Chloride 111 mmol/L (98-107); Creatinine, Serum 1.27 mg/dL (0.55-1.02); EST Glomerular Filtration Rate 45 mL/min (>60); Est Glom Filt Rate - Afr Amer 54 mL/min (>60); Glucose 97 mg/dL (74-106); Potassium 4.2 mmol/L (3.5-5.1); Sodium Level 140 mmol/L (136-145)
--- NOTE | 2020-03-16 22:17 | ED.VIS.GEN ---
History of Present Illness Chief Complaint: Chest Pain Informant: Patient Onset: Month(s) - 1+ months Context: Sudden Onset Timing: Intermittent Quality: Pressure Location: Midsternal Current Severity: - - No pain presently Maximum Severity: Moderate Worsened by: Nothing specific Relieved by: Several minutes to longer nitroglycerin sublingual Associated Symptoms: Dyspnea and diaphoresis Narrative: Patient is a elderly woman with multiple risk factors for coronary disease and documented coronary disease. She had a cardiac cath by Dr. Starr she believes. She states there was lesions in multiple vessels but nothing that required intervention. She is a former smoker. She denies history C's, hiatal hernia. She denies black or maroon stool. She is presently pain-free. She denies leg pain, swelling discoloration. She reports symptoms of claudication the past 1 to 2 months. (She has no hair on her toes). She denies cough, orthopnea, PND. She denies history of VTE. She denies any other symptoms. Prior similar symptoms: Yes Recent Illness/Hospitalization: No - Past Medical History (1) Coronary artery disease Status: Chronic (2) Bipolar disorder Status: Chronic (3) CVA (cerebral infarction) Status: Chronic Comment: Left cerebellar stroke (4) Diabetes type 2, controlled Status: Chronic (5) Hyperlipidemia Status: Chronic (6) Hypertension Status: Chronic (7) Schizoaffective disorder Status: Chronic Past Medical History - Allergies and Home Meds Allergies/Adverse Reactions: Allergies carbamazepine [From Tegretol] Allergy (Verified 03/16/20 20:00) Fever and skin rash latex Allergy (Verified 03/16/20 20:00) Rash Penicillins Allergy (Verified 03/16/20 20:00) Rash venom-honey bee [bee venom (honey bee)] Allergy (Verified 03/16/20 20:00) Anaphylaxis ibuprofen [From Motrin] Adverse Reaction (Verified 03/16/20 20:00) Upset Stomach Prior records reviewed: Yes Surgical History: - - Multiple surgeries on right hand Cholecystectomy Appendectomy Martin loera Lives: Alone Smoking Status: Former smoker Alcohol: Rare Drugs: None - Family History Maternal Family History: Reports: No pertinent history Paternal Family History: Reports: No pertinent history Review of Systems General: Denies: Chills, Fever, Sweats Eyes: Denies: Visual changes - bilaterally, Blurred Vision - bilaterally ENT: Denies: Rhinorrhea, Sore throat Cardiovascular: Reports: Chest pain Respiratory: Reports: Dyspnea. Denies: Cough, Sputum, Dyspnea on exertion, Orthopnea, Paroxysmal nocturnal dyspnea, -, - Gastrointestinal: Denies: Abdominal pain, Nausea, Vomiting, Diarrhea, Melena, Hematochezia Genitourinary: Denies: Dysuria, Hematuria, Frequency Musculoskeletal: Denies: Myalgias, Arthralgias, Neck pain, Back pain, Swelling, Extremity Pain Skin: Denies: Rash, Wounds Neurological: Denies: Headache, Weakness, Numbness Endocrine: Denies: Polyuria, Polydipsia Hematologic: Denies: Easy bruising, Easy bleeding Physical Exam Vital Signs/Narrative: Vital Signs Temp Pulse Resp BP Pulse Ox 03/16/20 21:15 98.4 F 77 15 111/56 L 96 03/16/20 20:31 98.4 F 76 16 122/46 H 96 03/16/20 19:54 98.4 F 76 16 122/46 H 97 Inital Vital Signs reviewed: Yes General: Well nourished, Well developed, No Acute Distress Head: Normocephalic, Atraumatic Eyes: Perrl, EOMI ENT: Moist mucous membranes, No rhinorrhea Neck: Supple, Nontender Cardiovascular: Regular rate, Regular rhythm, No murmurs Respiratory: No distress, CTA bilaterally, Chest nontender Abdomen: Soft, Nontender, Nondistended, Normal bowel sounds Back: Nontender, Normal Inspection Extremities: Nontender, No edema, - - There is no asymmetry, swelling, discoloration, leg vein distention, palpable cords or tenderness along the distribution of the deep venous system. Of note she has no hair on her toes which would indicate peripheral chill disease especially should she reports symptoms of claudication. Skin: Normal color, No rash Neurological: Alert, Oriented x3, Cranial nerves II-XII grossly intact, Normal Strength, Normal Sensation Psychological: Normal affect, Normal Mood Diagnostic/Tx/Re-eval Impressions Chest X-Ray 03/16/20 20:35 IMPRESSION: Calcified plaques of the aortic arch. Calcific tendinitis/bursitis of the right shoulder joint. No acute cardiopulmonary disease process is seen. Electronically Signed: Flaco Villar MD at 20:50 EDT , Service support , 03/16/20 20:35 Chest 1 View (Portable) [RAD] Stat Laboratory Results 03/16/20 03/16/20 19:55 19:55 WBC 5.6 RBC 4.33 Hgb 10.6 L Hct 34.5 L MCV 79.7 L MCH 24.5 L MCHC 30.7 L RDW Std Deviation 44.1 H RDW Coeff of Isaiah 15.4 H Plt Count 223 MPV 11.4 Immature Gran % (Auto) 0.400 Neut % (Auto) 69.5 Lymph % (Auto) 13.6 L [place] % (Auto) 10.9 H Eos % (Auto) 5.4 H Baso % (Auto) 0.2 Absolute Neuts (auto) 3.9 Absolute Lymphs (auto) 0.76 L Nucleated RBC % 0 Sodium 140 Potassium 4.2 Chloride 111 H Carbon Dioxide 20.0 L Anion Gap 9 BUN 18 Creatinine 1.27 H Estim Creat Clear Calc 41.80 Est GFR (MDRD) Af Amer 54 L Est GFR (MDRD) Non-Af 45 L BUN/Creatinine Ratio 14.2 Glucose 97 Calcium 8.9 Troponin I < 0.015 - EKG Initial EKG Interpretation: Sinus Rhythm - Normal sinus rhythm with ventricular rate 74. CO interval 182 ms. QS duration 82 ms. QT duration 3 and 76 ms. [place] is normal. EKG is normal. - Medical Decision Making Differential diagnosis includes angina, noncardiac pain, GI etiology, doubt pulmonary embolus. In light of the fact that patient has been taking nitro and symptoms and been going on for approximate 1 month with multiple risk factors and known coronary disease will call hospitalist for serial enzymes and provocative testing i.e. stress versus cardiac cath. Case was discussed with Dr. Flower the drapery counselor. Agreed that Lovenox 1 mg/kg. Recommended stress test versus cardiac cath. Dr. Parmar to the hospitalist was paged since patient is no longer in the emergency department. ED Disposition - Plan for ED Patient: Disposition: Acute Care Hospital [facility] Diagnosis: Angina at rest, Diabetes type 2, controlled, Hyperlipidemia, Hypertension, Coronary artery disease
--- NOTE | 2020-03-16 22:21 | HP.PCM_ITS ---
Problem List (1) Chest pain Status: Acute Qualifiers: Chest pain type: unspecified Qualified Code(s): R07.9 - Chest pain, unspecified (2) Anemia Status: Chronic Qualifiers: Anemia type: unspecified type Qualified Code(s): D64.9 - Anemia, unspecified (3) Coronary artery disease Status: Chronic Qualifiers: Coronary Disease-Associated Artery/Lesion type: unspecified vessel or lesion type [place] vs. transplanted heart: unspecified whether [place] or transplanted heart Associated angina: angina presence unspecified Qualified Code(s): I25.10 - Atherosclerotic heart disease of [place] coronary artery without angina pectoris (4) Chronic pain syndrome Status: Chronic (5) Hyperlipidemia Status: Chronic Qualifiers: Hyperlipidemia type: unspecified Qualified Code(s): E78.5 - Hyperlipidemia, unspecified (6) CVA (cerebral infarction) Status: Chronic Qualifiers: Cerebral infarction mechanism: unspecified mechanism Qualified Code(s): I63.9 - Cerebral infarction, unspecified Comment: Left cerebellar stroke (7) Bipolar disorder Status: Chronic Qualifiers: Active/Remission status: remission status unspecified Qualified Code(s): F31.9 - Bipolar disorder, unspecified (8) Schizoaffective disorder Status: Chronic Qualifiers: Schizoaffective disorder type: unspecified Qualified Code(s): F25.9 - Schizoaffective disorder, unspecified (9) Hypertension Status: Chronic Qualifiers: Hypertension type: essential hypertension Qualified Code(s): I10 - Esse ntial (primary) hypertension (10) Diabetes type 2, controlled Status: Chronic Qualifiers: Diabetes mellitus alf insulin use: without machine long goods helper use Diabetes mellitus complication status: with unspecified complications Qualified Code(s): E11.8 - Type 2 diabetes mellitus with unspecified complications History of Present Illness Date of Admission: 03/16/20 Chief Complaint: Chest pain The patient is a 69 y/o M w/ PMHx: Migraines, HTN HLD, Anxiety and Depression/Bipolar disorder, Claustrophobia, Schizoaffective disorder, Hx Cervical CA, Diabetes mellitus type II, CAD, GERD w/ David's esophagus, Former Tobacco use, Hx CVA 03/2014 w/ L cerebellar infarction who presents to the [facility] ED on 03/16/20 with history of ongoing chest pain for the last several weeks to months, intermittent pressure like sensation, midsternal with occasional radiation to the right neck and jaw region, lasting minutes with near complete resolution instantaneously with nitroglycerin self administration with episodes concurrently of diaphoresis and dyspnea although mild with no specific nausea or emesis. She notes that today she was with her lining caser who noted the event and contacted her secondary school principal in [place] who referred her to the ED for evaluation. Patient is also noted some exertional dyspnea ongoing over the same amount of time noting that she gets more short of breath while she is been walking her dog. In the ED upon evaluation patient is currently chest pain- free. Work-up in the ED included T 90.4, heart rate 76, BP 122/46, respiratory rate 16, 97% on room air, CBC with WC 5.6, hemoglobin 10.6, platelet 223 with no specific left shift but noted lymphopenia, BMP with chloride of 111, carbon oxide 20, BUN/creatinine 18/1.27, troponin less than 0.015, chest x-ray with calcific plaques aortic arch, calcific tendinitis/bursitis of the right shoulder identified, no acute cardiopulmonary findings otherwise. In the ED patient ministered aspirin therapy. ED physician did page secondary school principal, Dr. Cervantes and awaiting callback. Past Medical History Past Medical History (Chronic Problems): Chronic Problems Coronary artery disease (Chronic) Anemia (Chronic) Chronic pain syndrome (Chronic) Hyperlipidemia (Chronic) CVA (cerebral infarction) (Chronic) Left cerebellar stroke Bipolar disorder (Chronic) Schizoaffective disorder (Chronic) Hypertension (Chronic) Diabetes type 2, controlled (Chronic) Allergies carbamazepine [From Tegretol] Allergy (Verified 03/16/20 20:00) Fever and skin rash latex Allergy (Verified 03/16/20 20:00) Rash Penicillins Allergy (Verified 03/16/20 20:00) Rash venom-honey bee [bee venom (honey bee)] Allergy (Verified 03/16/20 20:00) Anaphylaxis ibuprofen [From Motrin] Adverse Reaction (Verified 03/16/20 20:00) Upset Stomach Home Medications: Ambulatory Orders Medication Instructions Recorded Risperidone [Risperdal] 2 mg PO QHS 03/10/14 metFORMIN HCl [Glucophage] 1,000 mg PO BIDCM 03/10/14 Bupropion HCl [Wellbutrin Sr] 200 mg PO BID 03/07/15 Polyethylene Glycol 3350 [Miralax] 17 gm PO DAILY PRN PRN 03/07/15 Sertraline HCl [Zoloft] 50 mg PO DAILY 03/07/15 Gabapentin 300 mg PO TID 07/12/15 Clopidogrel Bisulfate [Plavix] 75 mg PO DAILY 04/13/17 Pyridoxine HCl [Vitamin B6] 100 mg PO DAILY 04/13/17 Topiramate [Topamax] 100 mg PO BID 07/10/18 Albuterol IH (ProAir) [Proair Hfa 2 puff INHALATION Q4H PRN PRN 09/10/19 (SP)Vent Pts] DiphenhydrAMINE [Benadryl] 25 mg PO DAILY 09/10/19 Epi Pen (for allergic rxn) 0.3 mg IM X1 09/10/19 Folic Acid 1 mg PO DAILY 09/10/19 Isosorbide Mononitrate [Isosorbide 30 mg PO DAILY 09/10/19 Mononitrate ER] Metoprolol Succinate [Toprol Xl] 25 mg PO DAILY 09/10/19 Nitroglycerin 0.4 mg SL .COMPLEX 09/10/19 Ondansetron [Ondansetron Odt] 4 mg PO Q8H PRN PRN 09/10/19 Pantoprazole Sodium [Protonix] 40 mg PO DAILY 09/10/19 Simvastatin [Zocor] 40 mg PO QHS 09/10/19 Aspirin E.C. [Ecotrin] 81 mg PO DAILY@0800 03/16/20 Sulfamethoxazole/Trimethoprim 2 ea PO DAILY 03/16/20 [Bactrim 400-80 mg Tablet] Surgical History: - - Multiple surgeries on right hand, Cholecystectomy, Appendectomy, Tummy tuck. 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 Paternal History Items: - - Patient does not know her biological father's history. Review of Systems Constitutional: Reports: Fatigue. Denies: Anorexia, Chills, Fever, Malaise, Weakness, Weight Change HEENT: Denies: Head Aches, Sinus Congestion, Sinus Drainage Cardiovascular: Reports: Chest Pain, Chest Pressure, Heaviness. Denies: Light Headedness, Orthopnea, Palpitations, Syncope Respiratory: Reports: Shortness of breath upon exertion. Denies: Cough, Shortness of Breath, Shortness of breath at rest, Sputum production, Wheezing Gastrointestinal: Denies: Abdominal Pain, Nausea, Vomiting Genitourinary: Denies: Dysuria Musculoskeletal: Reports: Joint Pain. Denies: Joint Tenderness Skin: Denies: Rash, Wounds Neurological: Denies: Numbness, Tingling, Focal weakness Psychiatric: Reports: Anxiety, Depression. Denies: Homicidal Ideations, Suicidal Ideations Hematologic/ Lymphatic: Reports: Anemia. Denies: Easy Bruising, Easy Bleeding VTE Information - Inpt Only VTE Present on Admission: No VTE Mechan Device Prophylaxis: SCD's VTE Pharm Prophylaxis ordered?: Yes Patient Problems: Active and Suspected Problems Chest pain (Acute) Subjective: Patient seated upright in the ED bed, mildly fatigued but otherwise no acute distress, no current chest discomfort. Objective: Physical Examination: General: awake, alert, oriented x 3 and cooperative, seated upright in the ED bed in no apparent distress, denies any current chest discomfort, improved. Skin: normal color, turgor, no icterus, cyanosis. HEENT: AT/NC, EOMI, PERRLA, MMM, no carotid bruits or JVD noted. Lungs: CTA bilaterally, moderate effort, mild decrease BL bases, no rales, ronchi or wheezing. Heart: Regular rate and rhythm; no gallop, rub audible. Abdomen: soft, NTTP, ND, normal BS, no HSM. Extremities: no cyanosis, clubbing, or edema. Neurological: patient awake, alert, oriented x 3; cognitive function intact; pupils equally reactive to light and accomodation; cranial nerves II-XII grossly normal, moving all 4 extremities, no focal deficits, strength mildly global decrease secondary to acute complaints. Psychiatric: affect appears mildly fatigued otherwise normal, no acute evidence of depressive or anxiety feelings. - Physical Exam Vitals/I&O's: Vital Signs Temp Pulse Resp BP Pulse Ox 98.4 F 77 15 111/56 L 96 03/16/20 21:15 03/16/20 21:15 03/16/20 21:15 03/16/20 21:15 03/16/20 21:15 Oxygen Delivery Method Room Air Weight: 175 lb 11.335 oz Body Mass Index (BMI) 27.5 Finger Stick Blood Glucose 180 Laboratory Results 03/16/20 19:55: WBC 5.6, RBC 4.33, Hgb 10.6 L, Hct 34.5 L, MCV 79.7 L, MCH 24.5 L, MCHC 30.7 L, RDW Std Deviation 44.1 H, RDW Coeff of Isaiah 15.4 H, Plt Count 223, MPV 11.4, Immature Gran % (Auto) 0.400, Neut % (Auto) 69.5, Lymph % (Auto) 13.6 L, [place] % (Auto) 10.9 H, Eos % (Auto) 5.4 H, Baso % (Auto) 0.2, Absolute Neuts (auto) 3.9, Absolute Lymphs (auto) 0.76 L, Nucleated RBC % 0 03/16/20 19:55: Sodium 140, Potassium 4.2, Chloride 111 H, Carbon Dioxide 20.0 L , Anion Gap 9, BUN 18, Creatinine 1.27 H, Estim Creat Clear Calc 41.80, Est GFR (MDRD) Af Amer 54 L, Est GFR (MDRD) Non-Af 45 L, BUN/Creatinine Ratio 14.2, Glucose 97, Calcium 8.9, Troponin I < 0.015 Assessment/Plan All Active Problems Severe anemia (Acute) Hypophosphatemia (Acute) Chest pain (Acute) Overweight (BMI 25.0-29.9) (Resolved) The patient is a 69 y/o M w/ PMHx: Migraines, HTN HLD, Anxiety and Depression/Bipolar disorder, Claustrophobia, Schizoaffective disorder, Hx Cervical CA, Diabetes mellitus type II, CAD, GERD w/ David's esophagus, Former Tobacco use, Hx CVA 03/2014 w/ L cerebellar infarction who presents to the [facility] ED on 03/16/20 with history of ongoing chest pain for the last several weeks to months, intermittent pressure like sensation, midsternal with occasional radiation to the right neck and jaw region. 1. Chest Pain: EKG in ED sinus rhythm no acute evidence of ischemia, CXR w/ no acute cardiopulmonary findings, initial trop normal x1. Will admit to PCU, place on a monitored bed to assure no acute myocardial infarction with serial cardiac enzymes and EKGs. Given history and prior noted multivessel disease in the past without need for intervention at that time do believe patient would benefit from consideration cardiac catheterization. Cardiology consulted, pending. ASA, NG, morphine. FLP in AM. Mag pending. 2. Hx NSTEMI, CAD: We will continue aspirin, Plavix, statin, metoprolol regimen. 3. Chronic normocytic anemia: Admission Hgb 10.6, prior baseline noted 12-13 range, stable, continue to trend. 4. Hypertension: Continue home isosorbide, metoprolol regimen with hold parameters, PRN IV hydralazine. 5. Hyperlipidemia: Continue home statin regimen. 6. Bipolar disorder/claustrophobia/schizoaffective disorder: Continue home Wellbutrin, Risperdal, sertraline regimen. 7. Diabetes mellitus type II with neuropathy: Hold oral regimen, ADA diet, Accu-Cheks with insulin sliding scale, continue gabapentin regimen. 8. History of CVA: CVA 03/2014 w/ L cerebellar infarction involving left middle cerebellar peduncle. Continued on pain, Plavix, statin, hypertensive regimen, hepatic regimen, statin therapy. 9. GERD: Famotidine. 10. DVT prophylaxis: SCDs, lovenox. OBSV E&M: [id number] Initial observation care L3
--- NOTE | 2020-03-16 23:09 | EKG12_ITS ---
Test Reason : AM EKG Blood Pressure : / mmHG Vent. Rate : 085 BPM Atrial Rate : 085 BPM P-R Int : 188 ms QRS Dur : 082 ms QT Int : 350 ms P-R-T Axes : 071 041 069 degrees QTc Int : 416 ms Normal sinus rhythm Normal ECG When compared with ECG of 16-MAR-2020 23:48, MANUAL COMPARISON REQUIRED, DATA IS UNCONFIRMED Confirmed by MATT SAUNDERS, ASHLEY ([id number]), food editor VERO NAZARIO ([id number]) on 03/21/2020 11:41:59 AM Referred By: VINH Confirmed By:ASHLEY GUTIERREZ MD
[2020-03-16 23:32] LABS: Magnesium 1.9 mg/dL (1.6-2.6)
[2020-03-16 23:33] LABS: Partial Thromboplast Time 27.6 Seconds (24.1-36.2)
[2020-03-17] MEDS: 0.9% Normal Saline 1,000 ML 100 ML IV (00:30)
[2020-03-17] MEDS: Enoxaparin 80 MG/0.8 ML Syringe SC (00:35)
[2020-03-17 03:00] VITALS: PULSE 87
[2020-03-17 04:38] LABS: Absolute Lymphocyte Count 0.31 X10^3/uL (0.83-4.51); Absolute Neutrophil Count 3.9 X10^3/uL (2.0-7.7); Hematocrit 32.8 % (37-47); Hemoglobin 9.8 g/dL (12.0-15.0); Lymphocyte # 0.31 X10^3/ul (4.0); Lymphocyte % 6.2 % (19-41); Mean Corp Hgb Conc 29.9 g/dL (32-36); Mean Corpuscular Hgb 23.8 pg (27.0-32.0); Mean Corpuscular Volume 79.6 fL (81-99); Mean Platelet Vol. 10.7 fl (6.2-12.0); Monocyte# 0.43 X10^3/uL; Monocyte% 8.6 % (0-10); NRBC Flagged by Analyzer 0 % (0-5); Neutrophil # 3.91 X10^3/uL (2.7-7.7); Neutrophil % 78.6 % (47-70); POSITIVE DIFFERENTIAL YES; Platelet Count 192 K/mm3 (150-450); RBC Distribution Width CV 15.3 % (11.6-14.6); RBC Distribution Width SD 44.3 fl (35.1-43.9); Red Blood Count 4.12 M/mm3 (4.2-5.4)
[2020-03-17 04:43] LABS: Differential Indicated SCAN CRITERIA MET
[2020-03-17 05:10] VITALS: BP 146/71; PULSE 84; RESP 16; TEMP 37.2; O2SAT 95
[2020-03-17 05:15] LABS: ALB/GLOB Ratio 1.2 RATIO (0.9-2.4); AST(SGOT) 18 U/L (15-37); Alanine Aminotransfer ALT/SGPT 26 U/L (13-56); Albumin, Serum 3.5 g/dL (3.2-5.0); Alkaline Phosphatase 65 U/L (45-117); Anion Gap 5 (5-15); BUN 17 mg/dL (7-18); BUN/Creat Ratio 16.7 RATIO (10-20); Calcium,Total 8.4 mg/dL (8.5-10.1); Chloride 109 mmol/L (98-107); Cholesterol 115 mg/dL (200); Creatinine, Serum 1.02 mg/dL (0.55-1.02); EST Glomerular Filtration Rate 57 mL/min (>60); Est Glom Filt Rate - Afr Amer 70 mL/min (>60); Estimated Creatinine Clearance 52.05 ml/min; Globulin 2.8 g/dL (2.2-4.2); Glucose 115 mg/dL (74-106); High Density Lipoprotein 47 mg/dL; Protein, Total 6.3 g/dL (6.4-8.2); Sodium Level 138 mmol/L (136-145); Triglycerides 78 mg/dL; Very Low Density Lipoprotein 16 mg/dL (5-40)
[2020-03-17] MEDS: Gabapentin 300 MG Capsule PO (05:15)
--- NOTE | 2020-03-17 05:55 | EKG12_ITS ---
Test Reason : ADM EKG Blood Pressure : / mmHG Vent. Rate : 071 BPM Atrial Rate : 071 BPM P-R Int : 190 ms QRS Dur : 088 ms QT Int : 374 ms P-R-T Axes : 067 020 059 degrees QTc Int : 406 ms Normal sinus rhythm Normal ECG When compared with ECG of 10-JUL-2018 10:04, No significant change was found Confirmed by MATT SAUNDERS, ASHLEY ([id number]), sound editor VERO NAZARIO ([id number]) on 03/21/2020 11:43:39 AM Referred By: VINH Confirmed By:ASHLEY GUTIERREZ MD
[2020-03-17 06:48] VITALS: PULSE 86
[2020-03-17] MEDS: Aspirin E.C. 81 MG Tablet PO (06:48)
[2020-03-17] MEDS: Clopidogrel Bisulfate 75 MG Tablet PO (06:49)
[2020-03-17 06:55] LABS: Bedside Glucose 130 mg/dL (70-110)
[2020-03-17 07:24] VITALS: O2SAT 94
[2020-03-17] MEDS: Acetaminophen 325 MG Tablet 650 MG PO (07:38)
[2020-03-17 10:14] VITALS: BP 122/49; PULSE 84; RESP 16; TEMP 36.4; O2SAT 95
[2020-03-17] MEDS: Isosorbide Mononitrate 30 MG Tablet PO (10:18)
[2020-03-17] MEDS: Topiramate 100 MG Tablet PO (10:18)
[2020-03-17 10:19] VITALS: PULSE 84
[2020-03-17] MEDS: Pantoprazole Sodium 40 MG Tablet PO (10:19)
[2020-03-17] MEDS: Sertraline 50 MG Tablet PO (10:19)
[2020-03-17] MEDS: buPROPion (SR) 100 MG TABLET.SA 200 MG PO (10:19)
[2020-03-17] MEDS: DiphenhydrAMINE 25 MG Capsule PO (10:19)
[2020-03-17] MEDS: Metoprolol(XL)Succ 25 MG Tablet PO (10:19)
[2020-03-17] MEDS: Folic Acid 1 MG Tablet PO (10:19)
[2020-03-17] MEDS: Famotidine 20 MG Tablet PO (10:19)
[2020-03-17] MEDS: Pyridoxine HCl 50 MG Tablet 100 MG PO (10:20)
--- NOTE | 2020-03-17 10:20 | PCM.CONS.C ---
Problem List (1) Chest pain Status: Acute Qualifiers: Chest pain type: unspecified Qualified Code(s): R07.9 - Chest pain, unspecified (2) Chronic pain syndrome Status: Chronic Reason for Consult Date of Consultation: 03/17/20 Reason for Consultation: 6 weeks of chest pain History of Present Illness: The patient is a 69 year old F referred for assessment of 6 weeks of chest pain. It was described as a substernal heaviness mostly at rest happening once or twice a day lasting up to 2 minutes with some degree of shortness of breath. Radiated to the right side of the neck. Sometimes it can happen at nighttime. Her cardiac history dates back to 2014 at that time patient had cardiac catheterization and showed insignificant coronary artery disease with preserved left ventricular systolic wall motion. 2018 patient was readmitted for chest pain, nuclear stress test at that time was normal. Since then, patient has been doing anything she wants to do with no difficulty. For the last 6 weeks, patient has been getting more tired than usual. She is known to have hypertension, diabetes and hyperlipidemia. According to her she had a cerebellar stroke 2013. After admission, 3 sets of enzymes were normal. 2 sets of EKG were normal. Nuclear stress test was performed this morning and showed basically normal perfusion with no reversibility. On examination today the chest pain can be reproduced by pressing on the sternal area. She is a non-smoker and nondrinker. She has been treated for bipolar disorder [] Past Medical History Allergies/Adverse Reactions: Allergies carbamazepine [From Tegretol] Allergy (Verified 03/16/20 20:00) Fever and skin rash latex Allergy (Verified 03/16/20 20:00) Rash Penicillins Allergy (Verified 03/16/20 20:00) Rash venom-honey bee [bee venom (honey bee)] Allergy (Verified 03/16/20 20:00) Anaphylaxis ibuprofen [From Motrin] Adverse Reaction (Verified 03/16/20 20:00) Upset Stomach Home Medications: Ambulatory Orders Medication Instructions Recorded Risperidone [Risperdal] 2 mg PO QHS 03/10/14 metFORMIN HCl [Glucophage] 1,000 mg PO BIDCM 03/10/14 Bupropion HCl [Wellbutrin Sr] 200 mg PO BID 03/07/15 Polyethylene Glycol 3350 [Miralax] 17 gm PO DAILY PRN PRN 03/07/15 Sertraline HCl [Zoloft] 50 mg PO DAILY 03/07/15 Gabapentin 300 mg PO TID 07/12/15 Clopidogrel Bisulfate [Plavix] 75 mg PO DAILY 04/13/17 Pyridoxine HCl [Vitamin B6] 100 mg PO DAILY 04/13/17 Topiramate [Topamax] 100 mg PO BID 07/10/18 Albuterol IH (ProAir) [Proair Hfa 2 puff INHALATION Q4H PRN PRN 09/10/19 (SP)Vent Pts] DiphenhydrAMINE [Benadryl] 25 mg PO DAILY 09/10/19 Epi Pen (for allergic rxn) 0.3 mg IM X1 09/10/19 Folic Acid 1 mg PO DAILY 09/10/19 Isosorbide Mononitrate [Isosorbide 30 mg PO DAILY 09/10/19 Mononitrate ER] Metoprolol Succinate [Toprol Xl] 25 mg PO DAILY 09/10/19 Nitroglycerin 0.4 mg SL .COMPLEX 09/10/19 Ondansetron [Ondansetron Odt] 4 mg PO Q8H PRN PRN 09/10/19 Pantoprazole Sodium [Protonix] 40 mg PO DAILY 09/10/19 Simvastatin [Zocor] 40 mg PO QHS 09/10/19 Aspirin E.C. [Ecotrin] 81 mg PO DAILY@0800 03/16/20 Estrogens, Conjugated [Premarin] 1 dose VAGINAL DAILY 03/16/20 Sulfamethoxazole/Trimethoprim 2 ea PO DAILY 03/16/20 [Bactrim 400-80 mg Tablet] Past Medical History (Chronic Problems): Chronic Problems Coronary artery disease (Chronic) Anemia (Chronic) Chronic pain syndrome (Chronic) Hyperlipidemia (Chronic) CVA (cerebral infarction) (Chronic) Left cerebellar stroke Bipolar disorder (Chronic) Schizoaffective disorder (Chronic) Hypertension (Chronic) Diabetes type 2, controlled (Chronic) Surgical History: - - Multiple surgeries on right hand, Cholecystectomy, Appendectomy, Tummy tuck. 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 Paternal History Items: - - Patient does not know her biological father's history. Lives: Alone Smoking Status: Former smoker Tobacco Use: Non-smoker Alcohol: Rare Drugs: None Review of Systems - Review of Systems General: Reports: Fatigue Cardiovascular: Reports: Chest Discomfort, Shortness of Breath Neurological: Reports: History of CVA, - - Bipolar disorder Psychiatric: Reports: - - Bipolar disorder Hematologic/ Lymphatic: Reports: Anemia Objective: Vital Signs Temp Pulse Resp BP Pulse Ox 97.6 F L 84 16 122/49 H 95 03/17/20 10:14 03/17/20 10:14 03/17/20 10:14 03/17/20 10:14 03/17/20 10:14 Oxygen Delivery Method Room Air Weight: 165 lb 5.547 oz Body Mass Index (BMI) 25.9 Finger Stick Blood Glucose 180 Intake and Output for Last 24 Hours 03/15/20 03/16/20 03/17/20 23:59 23:59 23:59 Intake Total 750 / 750 Output Total 0 / 0 Balance 750 / 750 General: Healthy Appearing, Awake, Alert, Oriented x 3, Cooperative, No Acute Distress HEENT: Atraumatic Neck: Supple Chest Wall: - - Tenderness on palpation of the sternal area similar to the pain that she had for the last 6 weeks Lungs: Clear to auscultation Cardiovascular: Regular Rhythm, Normal S1, Normal S2, No Murmurs, No Gallops Vascular: No Carotid Bruits Abdomen: Bowel Sounds Present, Soft, Non Tender, No HSM, No Organomegaly Extremities: No edema Musculoskeletal: - - Tenderness on palpation of the substernal area similar to the chest pain for the last 6 weeks Psych/Mental Status: Appropriate, Normal Affect 03/16/20 19:55: WBC 5.6, RBC 4.33, Hgb 10.6 L, Hct 34.5 L, MCV 79.7 L, MCH 24.5 L, MCHC 30.7 L, Plt Count 223, MPV 11.4, Immature Gran % (Auto) 0.400, Neut % (Auto) 69.5, Lymph % (Auto) 13.6 L, White % (Auto) 10.9 H, Eos % (Auto) 5.4 H, Baso % (Auto) 0.2, Absolute Neuts (auto) 3.9, Nucleated RBC % 0 03/16/20 19:55: Sodium 140, Potassium 4.2, Chloride 111 H, Carbon Dioxide 20.0 L, Anion Gap 9, BUN 18, Creatinine 1.27 H, Est GFR (MDRD) Af Amer 54 L, Est GFR (MDRD) Non-Af 45 L, BUN/Creatinine Ratio 14.2, Glucose 97, Calcium 8.9, Troponin I < 0.015 03/16/20 19:55: PT 13.0, INR 1.0, APTT 27.6 03/16/20 19:55: Magnesium 1.9 03/17/20 00:58: Troponin I < 0.015 03/17/20 04:19: WBC 5.0, RBC 4.12 L, Hgb 9.8 L, Hct 32.8 L, MCV 79.6 L, MCH 23.8 L, MCHC 29.9 L, Plt Count 192, MPV 10.7, Immature Gran % (Auto) 0.600, Neut % (Auto) 78.6 H, Lymph % (Auto) 6.2 L, White % (Auto) 8.6, Eos % (Auto) 6.0 H, Baso % (Auto) 0.0, Absolute Neuts (auto) 3.9, Nucleated RBC % 0 03/17/20 04:19: Sodium 138, Potassium 4.0, Chloride 109 H, Carbon Dioxide 24.0, Anion Gap 5, BUN 17, Creatinine 1.02, Est GFR (MDRD) Af Amer 70, Est GFR (MDRD) Non-Af 57 L, BUN/Creatinine Ratio 16.7, Glucose 115 H, Calcium 8.4 L, Total Bilirubin 0.40, Triglycerides 78, Cholesterol 115, LDL Cholesterol 52, VLDL Cholesterol 16, HDL Cholesterol 47 03/17/20 04:19: Troponin I < 0.015 03/17/20 06:59: Troponin I < 0.015 Rhythm: EKG: ECHO: Stress Test: Cardiac Cath: PCI: CT Surgery: Holter monitor: EPS: PPM: CXR: Chest CT Scan: Assessment/Plan Atypical chest pain for the last 6 weeks The pain can be reproduced by pressing on the sternal area. 3 sets of enzymes were normal. 2 sets of EKG was normal. Patient had cardiac catheterization 2014 and showed no significant coronary artery disease. Nuclear stress test was performed 2 years ago for chest pain and was normal. Nuclear stress test done this morning was normal. From cardiac standpoint patient can be discharged. 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 She can be treated conservatively
--- NOTE | 2020-03-17 10:22 | STRESSREP ---
Stress Test Report Pharmacologic myocardial perfusion stress test. 69-year-old lady with a history of chest pain. Stress protocol: Resting EKG demonstrates normal sinus rhythm with a rate of 73 bpm normal intervals are noted resting blood pressure is 132/72 mmHg. 0.4 mg of regadenoson was infused per usual protocol followed by rapid intravenous saline flush injection continuous EKG monitoring was performed. The maximum heart rate attained was 101 bpm which was 66% of maximum predicted heart rate the maximum workload was 1 metabolic equivalent. At rest there were no ST or T wave changes noted to suggest abnormal flow reserve at peak infusion nonspecific ST-T wave changes were noted with no meet the criteria for ischemia. No clinical angina was noted. Myocardial perfusion protocol. 12.0 mCi of technetium 99m sestamibi was injected at rest. 0.4 mg of regadenoson was infused per usual protocol peak infusion 36.0 mCi of technetium 99m sestamibi was injected. Stress images were obtained stress and rest images were reconstructed and compared in the short axis vertical and horizontal long axis. Gated images were also obtained Perfusion SPECT analysis: Review of the stress images demonstrate normal uptake of tracer noted in all areas of the myocardium the resting images similarly demonstrate normal uptake of tracer noted in all areas of the myocardium. No areas of reversibility are noted suggest ischemia. No previous infarct is noted. Gated SPECT analysis: The gated ejection fraction is 78%. Conclusion: Normal pharmacologic myocardial perfusion stress test. Preserved ejection fraction.
[2020-03-17 10:46] LABS: Bedside Glucose 219 mg/dL (70-110)
[2020-03-17] MEDS: Insulin Lispro 100 UNIT/ML INSULN.PEN SC (10:52)
--- NOTE | 2020-03-17 10:52 | PCM.DC ---
- Discharge Diagnoses Current Active Problems: Current Active and Chronic Problems Coronary artery disease (Chronic) Anemia (Chronic) Chest pain (Acute) Angina at rest (Acute) Hyperlipidemia (Chronic) Hypertension (Chronic) Diabetes type 2, controlled (Chronic) You will use the following diet at home:: Calorie/Carbohydrate Controlled (specify 1200, 1400, etc) - 1800, Cardiac Your food should be the consistency of: Regular Discharge Activity: Return to Normal Activity Allergies/Adverse Reactions: Allergies carbamazepine [From Tegretol] Allergy (Verified 03/16/20 20:00) Fever and skin rash latex Allergy (Verified 03/16/20 20:00) Rash Penicillins Allergy (Verified 03/16/20 20:00) Rash venom-honey bee [bee venom (honey bee)] Allergy (Verified 03/16/20 20:00) Anaphylaxis ibuprofen [From Motrin] Adverse Reaction (Verified 03/16/20 20:00) Upset Stomach Medications to take at Discharge Risperidone [Risperdal] 2 mg PO QHS 03/10/14 metFORMIN HCl [Glucophage] 1,000 mg PO BIDCM 03/10/14 Bupropion HCl [Wellbutrin Sr] 200 mg PO BID 03/07/15 Polyethylene Glycol 3350 [Miralax] 17 gm PO DAILY PRN PRN 03/07/15 Sertraline HCl [Zoloft] 50 mg PO DAILY 03/07/15 Gabapentin 300 mg PO TID 07/12/15 Clopidogrel Bisulfate [Plavix] 75 mg PO DAILY 04/13/17 Pyridoxine HCl [Vitamin B6] 100 mg PO DAILY 04/13/17 Topiramate [Topamax] 100 mg PO BID 07/10/18 Albuterol IH (ProAir) [Proair Hfa] 2 puff INHALATION Q4H PRN PRN 09/10/19 DiphenhydrAMINE [Benadryl] 25 mg PO DAILY 09/10/19 Epi Pen (for allergic rxn) 0.3 mg IM X1 09/10/19 Folic Acid 1 mg PO DAILY 09/10/19 Isosorbide Mononitrate [Isosorbide Mononitrate ER] 30 mg PO DAILY 09/10/19 Metoprolol Succinate [Toprol Xl] 25 mg PO DAILY 09/10/19 Nitroglycerin 0.4 mg SL .COMPLEX 09/10/19 Ondansetron [Ondansetron Odt] 4 mg PO Q8H PRN PRN 09/10/19 Pantoprazole Sodium [Protonix] 40 mg PO DAILY 09/10/19 Simvastatin [Zocor] 40 mg PO QHS 09/10/19 Aspirin E.C. [Ecotrin] 81 mg PO DAILY@0800 03/16/20 Estrogens, Conjugated [Premarin] 1 dose VAGINAL DAILY 03/16/20 Sulfamethoxazole/Trimethoprim [Bactrim 400-80 mg Tablet] 2 ea PO DAILY 03/16/20 Primary Care Physician: Roberto Mcgill MD [Primary Care Provider] - Please follow up with your Primary Care Physician in: 1 to 2 weeks Test Results: Test results from this visit will be discussed in further detail at your follow-up appointment, if applicable. Proposed Discharge Date: 03/17/20
[2020-03-17] MEDS: Smz/Tmp Ds Tablet 1 TABLET PO (10:53)
--- NOTE | 2020-03-17 10:58 | PCM.DC.SUM ---
Discharge Date and Diagnosis - Problem List Patient Problems: Active and Suspected Problems Chest pain (Acute) Angina at rest (Acute) Date of Admission: 03/16/20 Date of Discharge: 03/17/20 - Primary Discharge Diagnosis Acute Problems: Active Problems Chest pain (Acute) Angina at rest (Acute) - Secondary Discharge Diagnosis Chronic Problems: Chronic Problems Coronary artery disease (Chronic) Anemia (Chronic) Chronic pain syndrome (Chronic) Hyperlipidemia (Chronic) CVA (cerebral infarction) (Chronic) Left cerebellar stroke Bipolar disorder (Chronic) Schizoaffective disorder (Chronic) Hypertension (Chronic) Diabetes type 2, controlled (Chronic) Hospital Course and Treatment Imaging Results: Operations: None Summary of Care Provided: The patient is a 69 year old F past medical history significant for diabetes mellitus type 2, dyslipidemia, essential hypertension, history of previous DC who presented with chest pain. Patient was placed on a monitored bed DC was ruled out with serial cardiac enzymes. Consultation was placed to cardiology cardiology recommended for patient to undergo nuclear stress test which was performed on 03/17/2020. Patient stress test was negative for stress-induced ischemia. 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 Patient Problems: Active and Suspected Problems Chest pain (Acute) Angina at rest (Acute) - Physical Exam Vitals/I&O's: Vital Signs Temp Pulse Resp BP Pulse Ox 97.6 F L 84 16 122/49 H 95 03/17/20 10:14 03/17/20 10:19 03/17/20 10:14 03/17/20 10:14 03/17/20 10:14 Oxygen Delivery Method Room Air Weight: 75 kg Body Mass Index (BMI) 25.9 Finger Stick Blood Glucose 180 Intake and Output for Last 24 Hours 03/15/20 03/16/20 03/17/20 23:59 23:59 23:59 Intake Total 750 / 750 Output Total 0 / 0 Balance 750 / 750 General: Alert Neck: Supple Lungs: Clear to auscultation Cardiovascular: Regular rate, Regular Rhythm Neurological: Neuro grossly intact Psych/Mental Status: Normal Affect Laboratory Results 03/16/20 19:55: WBC 5.6, RBC 4.33, Hgb 10.6 L, Hct 34.5 L, MCV 79.7 L, MCH 24.5 L, MCHC 30.7 L, RDW Std Deviation 44.1 H, RDW Coeff of Isaiah 15.4 H, Plt Count 223, MPV 11.4, Immature Gran % (Auto) 0.400, Neut % (Auto) 69.5, Lymph % (Auto) 13.6 L, Hardy % (Auto) 10.9 H, Eos % (Auto) 5.4 H, Baso % (Auto) 0.2, Absolute Neuts (auto) 3.9, Absolute Lymphs (auto) 0.76 L, Nucleated RBC % 0 03/16/20 19:55: Sodium 140, Potassium 4.2, Chloride 111 H, Carbon Dioxide 20.0 L, Anion Gap 9, BUN 18, Creatinine 1.27 H, Estim Creat Clear Calc 41.80, Est GFR (MDRD) Af Amer 54 L, Est GFR (MDRD) Non-Af 45 L, BUN/Creatinine Ratio 14.2, Glucose 97, Calcium 8.9, Troponin I < 0.015 03/16/20 19:55: PT 13.0, INR 1.0, APTT 27.6 03/16/20 19:55: Magnesium 1.9 03/17/20 00:58: Troponin I < 0.015 03/17/20 04:19: WBC 5.0, RBC 4.12 L, Hgb 9.8 L, Hct 32.8 L, MCV 79.6 L, MCH 23.8 L, MCHC 29.9 L, RDW Std Deviation 44.3 H, RDW Coeff of Isaiah 15.3 H, Plt Count 192, MPV 10.7, Immature Gran % (Auto) 0.600, Neut % (Auto) 78.6 H, Lymph % (Auto) 6.2 L, Hardy % (Auto) 8.6, Eos % (Auto) 6.0 H, Baso % (Auto) 0.0, Absolute Neuts (auto) 3.9, Absolute Lymphs (auto) 0.31 L, Nucleated RBC % 0, Differential Comment COMMENT 03/17/20 04:19: Sodium 138, Potassium 4.0, Chloride 109 H, Carbon Dioxide 24.0, Anion Gap 5, BUN 17, Creatinine 1.02, Estim Creat Clear Calc 52.05, Est GFR (MDRD) Af Amer 70, Est GFR (MDRD) Non-Af 57 L, BUN/Creatinine Ratio 16.7, Glucose 115 H, Calcium 8.4 L, Total Bilirubin 0.40, AST 18, ALT 26, Alkaline Phosphatase 65, Total Protein 6.3 L, Albumin 3.5, Globulin 2.8, Albumin/Globulin Ratio 1.2, Triglycerides 78, Cholesterol 115, LDL Cholesterol 52, VLDL Cholesterol 16, HDL Cholesterol 47 03/17/20 04:19: Troponin I < 0.015 03/17/20 06:47: POC Glucose 130 H 03/17/20 06:59: Troponin I < 0.015 03/17/20 10:33: POC Glucose 219 H Current Medications Acetaminophen (Tylenol) 650 mg PO Q6H PRN PRN PRN Reason: Pain Score 1-10/Temp > 100.7 F Last Admin: 03/17/20 07:38 Dose: 650 mg Documented by: Al Hydroxide/Mg Hydroxide (Mylanta Ii) 30 ml PO Q6H PRN PRN PRN Reason: Gastric Burning Albuterol Sulfate (Ventolin Aerosols) 2.5 mg INHALATION Q2H PRN PRN PRN Reason: Dyspnea, wheezing Aspirin (Ecotrin) 81 mg PO DAILY@0800 [facility] Last Admin: 03/17/20 06:48 Dose: 81 mg Documented by: Atorvastatin Calcium (Lipitor) 20 mg PO QHS [facility] Bupropion HCl (Wellbutrin Sr (100mg Tablets)) 200 mg PO BID [facility] Last Admin: 03/17/20 10:19 Dose: 200 mg Documented by: Clopidogrel Bisulfate (Plavix) 75 mg PO DAILY [facility] Last Admin: 03/17/20 06:49 Dose: 75 mg Documented by: Diphenhydramine HCl (Benadryl) 25 mg PO DAILY [facility] Last Admin: 03/17/20 10:19 Dose: 25 mg Documented by: Enoxaparin Sodium (Lovenox) 80 mg SC Q12@0600,1800 [facility] Last Admin: 03/17/20 05:07 Dose: Not Given Documented by: Famotidine (Pepcid) 20 mg PO BID [facility] Last Admin: 03/17/20 10:19 Dose: 20 mg Documented by: Folic Acid (Folic Acid) 1 mg PO DAILYCM [facility] Last Admin: 03/17/20 10:19 Dose: 1 mg Documented by: Gabapentin (Neurontin) 300 mg PO TID [facility] Last Admin: 03/17/20 05:15 Dose: 300 mg Documented by: Guaifenesin (Robitussin) 20 ml PO Q4H PRN PRN PRN Reason: COUGH Hydralazine HCl (Apresoline Iv) 10 mg IV Q4H PRN PRN PRN Reason: SBP > 160 Sodium Chloride () 1,000 mls @ 100 mls/hr IV .Q10H [facility] Last Infusion: 03/17/20 10:01 Dose: 100 mls/hr Documented by: Sodium Chloride () 250 mls @ 15 mls/hr IV .[id number] PRN PRN Reason: Saline Flush Sodium Chloride () 250 mls @ 15 mls/hr IV .[id number] PRN PRN Reason: Additional IVPB Infusion Insulin Human Lispro (Humalog Kwbarpen (Bkc)) 0 unit [facility]; Protocol Last Admin: 03/17/20 10:52 Dose: 2 units Documented by: Isosorbide Mononitrate (Imdur) 30 mg PO DAILY [facility] Last Admin: 03/17/20 10:18 Dose: 30 mg Documented by: Melatonin (Melatonin) 3 mg PO QHS PRN PRN PRN Reason: INSOMNIA Metoprolol Succinate (Toprol Xl (Beta Josh)) 25 mg PO DAILY [facility] Last Admin: 03/17/20 10:19 Dose: 25 mg Documented by: Morphine Sulfate () 2 mg IV Q3H PRN PRN PRN Reason: Pain Score 6-10/10 Nitroglycerin (Nitrostat) 0.4 mg SUBLINGUAL Q5M PRN PRN Reason: CARDIAC/CHEST PAIN Ondansetron HCl (Zofran) 4 mg IV Q8H PRN PRN PRN Reason: NAUSEA/VOMITING Oxycodone HCl (Oxyir) 5 mg PO Q4H PRN PRN PRN Reason: Pain Score 4-5/10 Pantoprazole Sodium (Protonix) 40 mg PO DAILY [facility] Last Admin: 03/17/20 10:19 Dose: 40 mg Documented by: Polyethylene Glycol (Miralax) 17 gm PO DAILY PRN PRN PRN Reason: Constipation Prochlorperazine Edisylate (Compazine Iv) 5 mg IV Q4H PRN PRN PRN Reason: Breakthrough Nausea/Vomiting Pyridoxine HCl (Vitamin B-6) 100 mg PO DAILY [facility] Last Admin: 03/17/20 10:20 Dose: 100 mg Documented by: Risperidone (Risperdal) 2 mg PO QHS [facility] Sertraline HCl (Zoloft) 50 mg PO DAILY [facility] Last Admin: 03/17/20 10:19 Dose: 50 mg Documented by: Sodium Chloride () 10 - 40 ml IV UD PRN PRN Reason: SALINE FLUSH Throat Lozenges (Cepacol Sore Throat Lozenge) 1 lozenge MUCOUS MEM Q2H PRN PRN PRN Reason: SORE THROAT Topiramate (Topamax) 100 mg PO BID [facility] Last Admin: 03/17/20 10:18 Dose: 100 mg Documented by: Trimethoprim/[facility]) [facility] Last Admin: 03/17/20 10:53 Dose: 1 tablet Documented by: Discharge Diet: Low fat/ Low Cholesterol, 1800 Calorie Control Diet Discharge Activity: Return to Normal Activity Home Medications: Medications to take at Discharge Risperidone [Risperdal] 2 mg PO QHS 03/10/14 metFORMIN HCl [Glucophage] 1,000 mg PO BID 03/10/14 Bupropion HCl [Wellbutrin Sr] 200 mg PO BID 03/07/15 Polyethylene Glycol 3350 [Miralax] 17 gm PO DAILY PRN PRN 03/07/15 Sertraline HCl [Zoloft] 50 mg PO DAILY 03/07/15 Gabapentin 300 mg PO TID 07/12/15 Clopidogrel Bisulfate [Plavix] 75 mg PO DAILY 04/13/17 Pyridoxine HCl [Vitamin B6] 100 mg PO DAILY 04/13/17 Topiramate [Topamax] 100 mg PO BID 07/10/18 Albuterol IH (ProAir) [Proair Hfa] 2 puff INHALATION Q4H PRN PRN 09/10/19 DiphenhydrAMINE [Benadryl] 25 mg PO DAILY 09/10/19 Epi Pen (for allergic rxn) 0.3 mg IM X1 09/10/19 Folic Acid 1 mg PO DAILY 09/10/19 Isosorbide Mononitrate [Isosorbide Mononitrate ER] 30 mg PO DAILY 09/10/19 Metoprolol Succinate [Toprol Xl] 25 mg PO DAILY 09/10/19 Nitroglycerin 0.4 mg SL .COMPLEX 09/10/19 Ondansetron [Ondansetron Odt] 4 mg PO Q8H PRN PRN 09/10/19 Pantoprazole Sodium [Protonix] 40 mg PO DAILY 09/10/19 Simvastatin [Zocor] 40 mg PO QHS 09/10/19 Aspirin E.C. [Ecotrin] 81 mg PO DAILY@0800 03/16/20 Estrogens, Conjugated [Premarin] 1 dose VAGINAL DAILY 03/16/20 Sulfamethoxazole/Trimethoprim [Bactrim 400-80 mg Tablet] 2 ea PO DAILY 03/16/20 Primary Care Physician: Roberto Mcgill MD [Primary Care Provider] - Please follow up with your Primary Care Physician in: 1 to 2 weeks Disposition: Home Minutes spent on discharge:: 35 Patient Condition:: Stable Medical Necessity - Tobacco Use Smoking Status: Former smoker Tobacco Use: Non-smoker Meaningful Use Info Meaningful Use Diagnoses (Choose all that apply): None applicable OBSV E&M: 63381 Observation care discharge
== END 2020-03-17 10:57 | disposition home or self-care (01) ==
LOC: ED 22:34 → PCU 22:54
PROVIDERS: Admitting Provider Family Medicine; Emergency Provider Emergency Medicine; PCP Family Medicine; Visit Provider Internal Medicine
DX: I25.119 Atherosclerotic heart disease of native coronary artery with unspecified angina pectoris (principal); F31.9 Bipolar disorder, unspecified; E78.5 Hyperlipidemia, unspecified; F25.9 Schizoaffective disorder, unspecified; I10 Essential (primary) hypertension; E11.42 Type 2 diabetes mellitus with diabetic polyneuropathy; G89.4 Chronic pain syndrome; K21.9 Gastro-esophageal reflux disease without esophagitis; F41.9 Anxiety disorder, unspecified; G43.909 Migraine, unspecified, not intractable, without status migrainosus; I25.2 Old myocardial infarction; D64.9 Anemia, unspecified; Z87.891 Personal history of nicotine dependence; Z79.899 Other long term (current) drug therapy; Z79.02 Long term (current) use of antithrombotics/antiplatelets; Z79.84 Long term (current) use of oral hypoglycemic drugs; Z79.82 Long term (current) use of aspirin; Z86.73 Personal history of transient ischemic attack (TIA), and cerebral infarction without residual deficits
CPT/HCPCS: 36415; 71045; 78452; 80048; 80053; 80061; 82962; 83735; 84484; 85025; 85610; 85730; 93005; 93017; 96360; 96361; 96372; 99218; 99251; 99285; A9500; J7030; A4216; G0378; G0463; J2785

== ENCOUNTER 2021-05-20 14:17 | Emergency (ER) | payer MEDICARE, SELFPAY ==
[2021-05-20] VITALS (7 sets, daily range): BP systolic 82–130; BP diastolic 49–69; PULSE 79–113; RESP 10–19; TEMP 36; O2SAT 95–99; BMI 24.4
[2021-05-20 14:25] LABS: Bedside Glucose 211 mg/dL (70-110)
--- NOTE | 2021-05-20 14:54 | EKG12_ITS ---
Test Reason : SYNCOPE Blood Pressure : / mmHG Vent. Rate : 102 BPM Atrial Rate : 102 BPM P-R Int : 166 ms QRS Dur : 084 ms QT Int : 360 ms P-R-T Axes : 056 031 076 degrees QTc Int : 469 ms Sinus tachycardia Otherwise normal ECG When compared with ECG of 17-MAR-2020 05:11, ST elevation now present in Inferior leads QT has lengthened Confirmed by BRIELLE SAUNDERS, CHERY ([id number]), health editor VERO NAZARIO ([id number]) on 05/24/2021 2:18:10 P M Referred By: GARRETT Confirmed By:SERGE HANNAH MD
--- NOTE | 2021-05-20 14:54 | CT_ITS ---
STUDY: CT BRAIN WITHOUT CONTRAST REASON FOR EXAM: Female, 70 years old. Syncope RADIATION DOSAGE (If Supplied By Facility): CTDIvol = ( 44.99 ) mGy, DLP = ( 779.24 ) mGycm TECHNIQUE: Transaxial CT imaging of the brain was performed without administration of intravenous contrast material. Individualized dose optimization techniques were used for this CT. COMPARISON: Comparison is made with prior study 09/10/2019. FINDINGS: Normal soft tissue structures. Normal calvarium. There is mild cerebral atrophy with widening of the extra-axial spaces and ventricular dilatation. Normal white matter tracts of the cerebral hemispheres. Normal basal ganglia and thalami. Normal brainstem. There is mild cerebellar atrophy. There is no intracranial hemorrhage. There are no findings of an acute ischemic infarction. Normal visualized paranasal sinuses. CT/Brain/Head without Contrast IMPRESSION: Chronic involutional changes of the brain. Electronically Signed: Aayan Reyna MD at 15:40 EST , Service support ,
[2021-05-20 15:11] LABS: Absolute Lymphocyte Count 1.06 X10^3/uL (0.83-4.51); Absolute Neutrophil Count 5.4 X10^3/uL (2.0-7.7); Basophil# 0.04 X10^3/uL; Basophil% 0.5 % (0-1); Eosinophil# 0.34 X10^3/uL; Eosinophils% 4.6 % (0-5); Hematocrit 36.6 % (37-47); Hemoglobin 11.5 g/dL (12.0-15.0); Lymphocyte # 1.06 X10^3/ul (0.83-4.51); Lymphocyte % 14.3 % (19-41); Mean Corp Hgb Conc 31.4 g/dL (32-36); Mean Corpuscular Hgb 28.4 pg (27.0-32.0); Mean Corpuscular Volume 90.4 fL (81-99); Mean Platelet Vol. 11.5 fl (6.2-12.0); Monocyte# 0.55 X10^3/uL; Monocyte% 7.4 % (0-10); NRBC Flagged by Analyzer 0 % (0-5); Neutrophil # 5.38 X10^3/uL (2.7-7.7); Neutrophil % 72.5 % (47-70); Platelet Count 203 K/mm3 (150-450); RBC Distribution Width CV 13.6 % (11.6-14.6); RBC Distribution Width SD 45.2 fl (35.1-43.9); Red Blood Count 4.05 M/mm3 (4.2-5.4); White Blood Count 7.4 K/mm3 (4.4-11.0)
[2021-05-20 15:21] LABS: Prothrombin Time (Protime)PT. 12.8 SECONDS (11.7-14.9)
[2021-05-20 15:31] LABS: Anion Gap 7 (5-15); BUN 18 mg/dL (7-18); BUN/Creat Ratio 11.4 RATIO (10-20); Calcium,Total 9.5 mg/dL (8.5-10.1); Chloride 103 mmol/L (98-107); Creatinine, Serum 1.58 mg/dL (0.55-1.02); EST Glomerular Filtration Rate 35 mL/min (>60); Est Glom Filt Rate - Afr Amer 42 mL/min (>60); Estimated Creatinine Clearance 33.14 ml/min; Glucose 226 mg/dL (74-106); Potassium 3.7 mmol/L (3.5-5.1); Sodium Level 138 mmol/L (136-145); Troponin-I HS 9 pg/mL (3.0-54.0)
[2021-05-20] MEDS: 0.9% Normal Saline 1,000 ML 999 ML IV ×2 (15:47→17:31)
--- NOTE | 2021-05-20 17:32 | EX.ED.DYSGE1 ---
HPI History of Present Illness Chief Complaint: Syncope Narrative Narrative: Patient is a 70-year-old female who states that she went with her to the [employer] today to cook pickled meat the car which recently was worked on. She states when she stood up out of the car she felt lightheaded/dizzy. She states she stood there for a second to regain her composure and they walk into the dealership. states they were standing at the counter when patient suddenly passed out. Patient states that she did not have chest pain or palpitations prior to the event. states that she was only out for 5 to 10 seconds when she awoke and knew who she was and where she was at. There is no reported seizure activity. Patient was then advised to come to the hospital for evaluation based on this event. She does states she has been anemic in the past and is concerned that she may need blood. [facility] Medical History CVA (cerebral vascular accident) Heart attack Home Medications metformin 1,000 mg PO BIDCM 03/10/14 [History Last Taken 03/16/20 16:00] risperidone 2 mg PO QHS 03/10/14 [History Last Taken 03/15/20 19:00] bupropion HCl [Wellbutrin SR] 200 mg PO BID 03/07/15 [History Last Taken 03/16/20 16:00] polyethylene glycol 3350 17 g PO DAILY PRN PRN 03/07/15 [History Last Taken 07/09/18] sertraline [Zoloft] 50 mg PO DAILY 03/07/15 [History Last Taken 03/16/20 07:00] Gabapentin 300 mg PO TID 07/12/15 [History Last Taken 03/16/20 16:00] clopidogrel 75 mg PO DAILY 04/13/17 [History Last Taken 03/16/20 07:00] pyridoxine (vitamin B6) 100 mg PO DAILY 04/13/17 [History Last Taken 03/16/20 12:00] topiramate [Topamax] 100 mg PO BID 07/10/18 [History Last Taken 03/16/20 07:00] albuterol sulfate 2 puff INHALATION Q4H PRN PRN 09/10/19 [History Last Taken Unknown] diphenhydramine HCl 25 mg PO DAILY 09/10/19 [History Last Taken Unknown] epinephrine 0.3 mg IM X1 09/10/19 [History Last Taken Unknown] folic acid 1 mg PO DAILY 09/10/19 [History Last Taken 03/16/20 12:00] isosorbide mononitrate 30 mg PO DAILY 09/10/19 [History Last Taken 03/16/20 07:00] metoprolol succinate 25 mg PO DAILY 09/10/19 [History Last Taken 03/16/20 07:00] nitroglycerin 0.4 mg SL .COMPLEX 09/10/19 [History Last Taken 03/16/20 14:00] ondansetron 4 mg PO Q8H PRN PRN 09/10/19 [History Last Taken Unknown] pantoprazole 40 mg PO DAILY 09/10/19 [History Last Taken 03/16/20 05:45] simvastatin 40 mg PO QHS 09/10/19 [History Last Taken 03/15/20 19:00] aspirin 81 mg PO DAILY@0800 03/16/20 [History Last Taken 03/16/20 07:00] conjugated estrogens 1 dose VAGINAL DAILY 03/16/20 [History Last Taken Unknown] sulfamethoxazole-trimethoprim 2 ea PO DAILY 03/16/20 [History Last Taken 03/16/20 16:00] Allergy/AdvReac Type Severity Reaction Status Date / Time carbamazepine [From Tegretol] Allergy Fever and Verified 05/20/21 14:21 skin rash latex Allergy Rash Verified 05/20/21 14:21 Penicillins Allergy Rash Verified 05/20/21 14:21 venom-honey bee Allergy Anaphylaxis Verified 05/20/21 14:21 [bee venom (honey bee)] ibuprofen [From Motrin] AdvReac Upset Verified 05/20/21 14:21 Stomach Surgical History (Updated 05/20/21 @ 15:10 by Anjali Hernández) History of total knee replacement Social History Smoking Status: Former smoker ROS ROS ED Constitutional Constitutional ED: Denies chills or fever(s) ENT ENT ED: Denies sore throat Cardiovascular Cardiovascular: Reports other Details: Positive dizziness/syncope ; Denies chest pain Respiratory/Chest Respiratory/Chest: Denies cough or dyspnea Gastrointestinal Gastrointestinal: Denies abdominal pain, diarrhea, nausea or vomiting Genitourinary Genitourinary ED: Denies dysuria Musculoskeletal Musculoskeletal: Denies myalgias Integumentary Denies rash Neurologic Neurologic: Denies headache(s) Hematologic/Lymphatic Hematologic/Lymphatic: Reports easy bleeding and easy bruising EXAM Physical Exam Const Vital Signs: 05/20/21 14:19 05/20/21 15:09 05/20/21 15:45 Temperature 96.8 F L Temperature Source Temporal Pulse Rate 113 H 105 H Pulse Rate [Lying] 98 Pulse Rate [Sitting] 105 H Pulse Rate [Standing] Respiratory Rate 16 16 Respiratory Effort Normal Non-Labored Respiratory Pattern Normal Blood Pressure 85/56 L 82/53 L Blood Pressure [Lying] 89/50 L Blood Pressure [Sitting] 82/53 L Blood Pressure [Standing] Blood Pressure Mean 65 62 Blood Pressure Mean [Lying] 63 Blood Pressure Mean [Sitting] 62 Blood Pressure Mean [Standing] Pulse Ox 98 95 Oxygen Delivery Method Room Air Room Air 05/20/21 16:23 05/20/21 17:04 Temperature Temperature Source Pulse Rate 91 95 Pulse Rate [Lying] 95 Pulse Rate [Sitting] 79 Pulse Rate [Standing] 106 H Respiratory Rate 13 10 L Respiratory Effort Respiratory Pattern Blood Pressure 112/61 99/49 L Blood Pressure [Lying] 107/62 Blood Pressure [Sitting] 119/61 Blood Pressure [Standing] 99/49 L Blood Pressure Mean 78 65 Blood Pressure Mean [Lying] 77 Blood Pressure Mean [Sitting] 80 Blood Pressure Mean [Standing] 65 Pulse Ox 96 99 Oxygen Delivery Method Room Air Room Air Positive well nourished and well developed General Appearance ED: well developed HEENT Reports dry mucous membranes HEENT Narrative: No signs of depressed or basilar skull fracture Mouth ED: Yes dry mucous membranes Mouth: dry mucous membranes Eyes PERRL and EOMs intact bilaterally General Eye ED: Yes pale conjunctiva Neck supple Neck Narrative: No midline neck pain with palpation no bony deformity or step-off of the cervical spine Resp normal respiratory effort and clear to auscultation bilaterally Cardio regular rhythm Rate: tachycardic and other Other Details: Radial pulses are plus 2 out of 4 bilaterally they are equal and symmetric GI normal to inspection, nondistended, normoactive bowel sounds, non-tender, non-distended and no masses GI Narrative: No voluntary guarding or rigidity no pulsatile mass Auscultation: normoactive bowel sounds Palpation: soft Extremity normal to inspection Extremity Narrative: Pelvis is stable there is no shortening or external rotation of either lower extremity. No bony deformity or step-off of the thoracic or lumbar spine no midline pain with palpation. Neuro oriented x3 and CN's II-XII intact bilaterally Neuro Narrative: Cranial nerves II through XII are grossly intact no focal neurologic deficit. No pronator drift no dysmetria no truncal ataxia. NIH stroke scale score of 0 Sensorium / Orientation: alert Motor Exam: strength 5/5 throughout Psych mental status grossly normal Skin no rashes or lesions noted Skin Narrative: No abrasions or ecchymosis noted. Skin turgor is increased MDM MDM MDM Narrative Medical decision making narrative: Patient presented to the ER awake and alert with normal neurologic exam. She reported 1 bout of syncope that occurred while standing and she was hypotensive upon arrival. Physical exam is most consistent with dehydration. Basic labs were obtained which shows a stable H&H but kidney function is elevated at 1.58 when her baseline creatinine is typically 0.8. She was also orthostatic positive consistent with. Head CT revealed no acute brain trauma or pathology. EKG revealed no acute cardiac event and troponin was normal. Patient was given 1 L of fluid and did have improvement of symptoms but not complete resolution. Therefore second liter will be given. Following this patient will have a repeat road test and if she is able to ambulate without difficulty will be discharged home at this time. Lab Data Attestation: I reviewed the patient's lab results. Labs: Laboratory Results - last 24 hr 05/20/21 05/20/21 05/20/21 14:20 15:05 15:05 WBC 7.4 RBC 4.05 L Hgb 11.5 L Hct 36.6 L MCV 90.4 MCH 28.4 MCHC 31.4 L RDW Std Deviation 45.2 H RDW Coeff of Isaiah 13.6 Plt Count 203 MPV 11.5 Immature Gran % (Auto) 0.700 Neut % (Auto) 72.5 H Lymph % (Auto) 14.3 L [place] % (Auto) 7.4 Eos % (Auto) 4.6 Baso % (Auto) 0.5 Absolute Neuts (auto) 5.4 Absolute Lymphs (auto) 1.06 Nucleated RBC % 0 PT INR APTT Sodium 138 Potassium 3.7 Chloride 103 Carbon Dioxide 28.0 Anion Gap 7 BUN 18 Creatinine 1.58 H Estim Creat Clear Calc 33.14 Est GFR (MDRD) Af Amer 42 L Est GFR (MDRD) Non-Af 35 L BUN/Creatinine Ratio 11.4 Glucose 226 H Calcium 9.5 Magnesium 2.0 Troponin I High Sens 9 POC Glucose 211 H Blood Type Antibody Screen 05/20/21 05/20/21 15:05 15:30 WBC RBC Hgb Hct MCV MCH MCHC RDW Std Deviation RDW Coeff of Isaiah Plt Count MPV Immature Gran % (Auto) Neut % (Auto) Lymph % (Auto) [place] % (Auto) Eos % (Auto) Baso % (Auto) Absolute Neuts (auto) Absolute Lymphs (auto) Nucleated RBC % PT 12.8 INR 1.0 APTT 28.0 Sodium Potassium Chloride Carbon Dioxide Anion Gap BUN Creatinine Estim Creat Clear Calc Est GFR (MDRD) Af Amer Est GFR (MDRD) Non-Af BUN/Creatinine Ratio Glucose Calcium Magnesium Troponin I High Sens POC Glucose Blood Type O POSITIVE Antibody Screen NEGATIVE Radiography Diagnostic Testing: Clinical Impression(s) from Imaging Studies Brain CT 05/20/21 14:54 IMPRESSION: Chronic involutional changes of the brain. Electronically Signed: Ayaan Reyna MD at 15:40 EST , Service support , Discharge Plan Triage Chief Complaint: Syncope ED Provider: Richar Chowdary Dx/Rx/DC Orders Clinical Impression: Orthostatic syncope, Dehydration Instructions: Dehydration, ED Hypotension, Orthostatic Prescriptions: No Action risperidone 2 MG tablet 2 mg PO QHS RF: 0 metformin 1,000 MG tablet 1,000 mg PO BIDCM RF: 0 polyethylene glycol 3350 17 GM Packet 17 g PO DAILY PRN PRN (Reason: Constipation) RF: 0 sertraline [Zoloft] 25 MG tablet 50 mg PO DAILY RF: 0 bupropion HCl [Wellbutrin SR] 200 MG tablet 200 mg PO BID RF: 0 Gabapentin 300 mg PO TID RF: 0 clopidogrel 75 MG tablet 75 mg PO DAILY RF: 0 pyridoxine (vitamin B6) 50 MG tablet 100 mg PO DAILY RF: 0 topiramate [Topamax] 50 MG tablet 100 mg PO BID RF: 0 isosorbide mononitrate 30 mg tablet extended release 24 hr 30 mg PO DAILY RF: 0 simvastatin 40 MG tablet 40 mg PO QHS RF: 0 pantoprazole 40 MG tablet 40 mg PO DAILY RF: 0 diphenhydramine HCl 25 MG capsule 25 mg PO DAILY RF: 0 nitroglycerin 0.4 MG tablet, sublingual 0.4 mg SL .COMPLEX RF: 0 folic acid 1 MG tablet 1 mg PO DAILY RF: 0 metoprolol succinate 25 MG tablet extended release 24 hr 25 mg PO DAILY RF: 0 epinephrine 0.3 MG syringe 0.3 mg IM X1 RF: 0 albuterol sulfate 1 PUFF inhaler 2 puff inhalation Q4H PRN PRN (Reason: Wheezing) RF: 0 ondansetron 4 mg tablet,disintegrating 4 mg PO Q8H PRN PRN (Reason: Nausea) RF: 0 sulfamethoxazole-trimethoprim 1 EACH tablet 2 ea PO DAILY RF: 0 aspirin 81 MG tablet 81 mg PO DAILY@0800 RF: 0 conjugated estrogens 1 DOSE cream 1 dose vaginal DAILY RF: 0 Primary Care Provider: Roberto Mcgill Referrals: Roberto Mcgill MD [Primary Care Provider] - Disposition Disposition: Home, Self Care
== END 2021-05-20 20:09 | disposition home or self-care (01) ==
PROVIDERS: Emergency Provider Emergency Medicine; PCP Family Medicine
DX: I95.1 Orthostatic hypotension (principal); E86.0 Dehydration; I25.2 Old myocardial infarction; Z79.82 Long term (current) use of aspirin; Z87.891 Personal history of nicotine dependence; Z86.73 Personal history of transient ischemic attack (TIA), and cerebral infarction without residual deficits
CPT/HCPCS: 70450; 80048; 82962; 83735; 84484; 85025; 85610; 85730; 86850; 86900; 86901; 93005; 96360; 96361; 99284; J7030; A4216

== ENCOUNTER 2021-08-20 09:28 | Emergency (ER) | payer MEDICARE, SELFPAY ==
[2021-08-20 09:30] VITALS: BP 132/73; PULSE 84; RESP 16; TEMP 36.8; O2SAT 98; BMI 26.9
[2021-08-20 09:38] VITALS: O2SAT 99
--- NOTE | 2021-08-20 09:58 | CT_ITS ---
STUDY: CT BRAIN WITHOUT CONTRAST REASON FOR EXAM: Female, 70 years old. Injury/Pain RADIATION DOSAGE (If Supplied By Facility): CTDIvol = ( 30.20 ) mGy, DLP = ( 1137.63 ) mGycm TECHNIQUE: Transaxial CT imaging of the brain was performed without administration of intravenous contrast material. Individualized dose optimization techniques were used for this CT. COMPARISON: Comparison is made with prior examination dated 05/20/2021. FINDINGS: Small scalp hematoma overlying the left frontal bone. Normal calvarium. There is mild cerebral atrophy with widening of the extra-axial spaces and ventricular dilatation. Normal white matter tracts of the cerebral hemispheres. Normal basal ganglia and thalami. Normal brainstem. Normal cerebellum. There is no intracranial hemorrhage. There are no findings of an acute ischemic infarction. Normal visualized paranasal sinuses. CT/Brain/Head without Contrast IMPRESSION: Chronic involutional changes of the brain. Small scalp hematoma overlying the left frontal bone. Electronically Signed: Ayaan Reyna MD at 10:26 EST ,
--- NOTE | 2021-08-20 09:59 | CT_ITS ---
STUDY: CT CERVICAL SPINE WITHOUT CONTRAST REASON FOR EXAM: Female, 70 years old. Injury/Pain RADIATION DOSAGE (If Supplied By Facility): CTDIvol = ( 30.20 ) mGy, DLP = ( 1137.63 ) mGycm TECHNIQUE: High resolution transaxial imaging was performed without contrast material. Sagittal and coronal images were reconstructed. Individualized dose optimization techniques were used for this CT. COMPARISON: None FINDINGS: Normal craniovertebral junction. There are degenerative changes of the anterior atlantoaxial articulation. Normal odontoid process. There is straightening of the normal cervical lordosis. Normal vertebral bodies and posterior osseous elements. C2-3: Facet joint osteoarthritis worse on the right side. No significant stenosis seen. C3-4: Minimal anterior listhesis of C3 on C4 most likely secondary to the facet joint osteoarthritis and hypertrophy on the right side. Moderate degree of right neural foraminal stenosis. C4-5: Facet joint osteoarthritis and hypertrophy on the right side. Mild right neural foraminal stenosis. C5-6: Moderate degree of disc space narrowing. Spondylosis. Uncovertebral arthrosis. Mild degree of bilateral neural foraminal stenosis. C6-7: Normal endplates. Normal disc height and morphology. Normal central canal and intervertebral neuroforamina. C7-T1: Normal endplates. Normal disc height and morphology. Normal central canal and intervertebral neuroforamina. Normal visualized soft tissue structures. CT/Spine Cervical without Contras IMPRESSION: Multilevel degenerative changes, as described above. Electronically Signed: Ayaan Reyna MD at 10:46 EST ,
[2021-08-20] MEDS: Diphth,Pertuss(Acell),Tet Vac 0.5 ML Vial IM (10:23)
--- NOTE | 2021-08-20 10:23 | EDS_ITS ---
HPI HPI - Fall History of Present Illness Chief Complaint: Fall Informant: patient Occured/Mechanism Occurred: Today Mechanism/Context: Yes trip Usually ambulates: Without assistance Pain/Injury Pain Location: head and neck Quality of Pain: Dull Worsened by: Turning her head Relieved by: Nothing Associated Symptoms Associated Symptoms: Negative for Parasthesias, Weakness, Loss of function, Inability to ambulate, Loss of consciousness and Amnesia Narrative Narrative: Patient presents with head injury that occurred today. Patient states he tripped and fell. Patient states she hit her head on a metal filing cabinet. Patient denies any loss of consciousness. Patient noted a lot of bleeding from the wound. Patient complains of pain in the left side of her head as well as the left side of her neck. Patient states her pain is worse whenever she turns her head. Patient describes her pain as aching. Patient is unsure of her last tetanus. Patient denies any loss of consciousness. Patient denies any paresthesias or weakness. Patient denies any visual changes. Patient admits to some mild nausea but denies any vomiting. Tetanus Immunization: Unknown [facility] Medical History CVA (cerebral vascular accident) Heart attack Home Medications metformin 1,000 mg PO BIDCM 03/10/14 [History Last Taken 03/16/20 16:00] risperidone 2 mg PO QHS 03/10/14 [History Last Taken 03/15/20 19:00] bupropion HCl [Wellbutrin SR] 200 mg PO BID 03/07/15 [History Last Taken 03/16/20 16:00] polyethylene glycol 3350 17 g PO DAILY PRN PRN 03/07/15 [History Last Taken 07/09/18] sertraline [Zoloft] 50 mg PO DAILY 03/07/15 [History Last Taken 03/16/20 07:00] Gabapentin 300 mg PO TID 07/12/15 [History Last Taken 03/16/20 16:00] clopidogrel 75 mg PO DAILY 04/13/17 [History Last Taken 03/16/20 07:00] pyridoxine (vitamin B6) 100 mg PO DAILY 04/13/17 [History Last Taken 03/16/20 12:00] topiramate [Topamax] 100 mg PO BID 07/10/18 [History Last Taken 03/16/20 07:00] albuterol sulfate 2 puff INHALATION Q4H PRN PRN 09/10/19 [History Last Taken Unknown] diphenhydramine HCl 25 mg PO DAILY 09/10/19 [History Last Taken Unknown] epinephrine 0.3 mg IM X1 09/10/19 [History Last Taken Unknown] folic acid 1 mg PO DAILY 09/10/19 [History Last Taken 03/16/20 12:00] isosorbide mononitrate 30 mg PO DAILY 09/10/19 [History Last Taken 03/16/20 07:00] metoprolol succinate 25 mg PO DAILY 09/10/19 [History Last Taken 03/16/20 07:00] nitroglycerin 0.4 mg SL .COMPLEX 09/10/19 [History Last Taken 03/16/20 14:00] ondansetron 4 mg PO Q8H PRN PRN 09/10/19 [History Last Taken Unknown] pantoprazole 40 mg PO DAILY 09/10/19 [History Last Taken 03/16/20 05:45] simvastatin 40 mg PO QHS 09/10/19 [History Last Taken 03/15/20 19:00] aspirin 81 mg PO DAILY@0800 03/16/20 [History Last Taken 03/16/20 07:00] conjugated estrogens 1 dose VAGINAL DAILY 03/16/20 [History Last Taken Unknown] sulfamethoxazole-trimethoprim 2 ea PO DAILY 03/16/20 [History Last Taken 03/16/20 16:00] Allergy/AdvReac Type Severity Reaction Status Date / Time carbamazepine [From Tegretol] Allergy Fever and Verified 08/20/21 09:38 skin rash latex Allergy Rash Verified 08/20/21 09:38 Penicillins Allergy Rash Verified 08/20/21 09:38 venom-honey bee Allergy Anaphylaxis Verified 08/20/21 09:38 [bee venom (honey bee)] ibuprofen [From Motrin] AdvReac Upset Verified 08/20/21 09:38 Stomach Surgical History History of total knee replacement Social History Smoking Status: Former smoker ROS ROS ED Constitutional Constitutional ED: Denies chills or fever(s) Eyes Eyes: Denies blurry vision or change in vision ENT ENT ED: Denies rhinorrhea or sore throat Cardiovascular Cardiovascular: Denies chest pain or palpitations Respiratory/Chest Respiratory/Chest: Denies cough or dyspnea Gastrointestinal Gastrointestinal: Reports nausea; Denies vomiting Genitourinary Genitourinary ED: Denies dysuria or hematuria Musculoskeletal Musculoskeletal: Reports back pain and neck pain Integumentary Reports rash; Denies abscess Neurologic Neurologic: Reports headache(s); Denies weakness Allergic/Immunologic Allergic/Immunologic ED: Denies mouth swelling or urticaria EXAM Physical Exam Const Vital Signs: 08/20/21 09:30 08/20/21 09:38 Temperature 98.3 F Temperature Source Oral Pulse Rate 84 Respiratory Rate 16 Respiratory Effort Normal Respiratory Depth Normal Respiratory Pattern Normal Blood Pressure 132/73 H Blood Pressure Mean 92 Pulse Ox 98 99 Oxygen Delivery Method Room Air Room Air Positive well nourished and well developed General Appearance ED: well developed Eyes PERRL and EOMs intact bilaterally Neck Neck Narrative: There is tenderness over the left cervical paraspinal muscles. There is no midline tenderness. There is no bony crepitance or step-off. Range of motion was limited in all motion secondary to pain. General: tenderness Resp normal respiratory effort and clear to auscultation bilaterally Cardio regular rate and regular rhythm GI non-tender Palpation: soft Extremity normal to inspection and full ROM Neuro oriented x3, CN's II-XII intact bilaterally, moves all extremities, no focal motor deficits and no sensory deficits noted Sensorium / Orientation: alert Psych mental status grossly normal MDM MDM MDM Narrative Medical decision making narrative: CT scan of the brain and cervical spine were obtained. There are chronic changes of the brain. There is a scalp hematoma over the left frontal bone. There is no acute intracranial abnormality. There are degenerative changes noted in the cervical spine. There is no acute fracture or spondylolisthesis. These were interpreted by the radiologist and reviewed by myself. The wound was cleaned and irrigated with copious amounts of normal saline. The wound was anesthetized with 1% plain lidocaine locally. There was a small arteriolar bleed noted. This was tied off with a simple interrupted #5-0 Vicryl suture. The wound was closed with 2 simple interrupted #5-0 nylon sutures under sterile technique. Patient tolerated the procedure well. Bacitracin dressing was applied. Patient was given a tetanus booster. Patient was instructed to keep the wound clean and dry. Patient was instructed to follow-up with her primary care physician in 5 days for wound recheck and suture removal. Patient understood and was agreeable with the plan. All questions were answered. Radiography Diagnostic Testing: Clinical Impression(s) from Imaging Studies Brain CT 08/20/21 09:58 IMPRESSION: Chronic involutional changes of the brain. Small scalp hematoma overlying the left frontal bone. Electronically Signed: Ayaan Reyna MD at 10:26 EST , Cervical Spine CT 08/20/21 09:59 IMPRESSION: Multilevel degenerative changes, as described above. Electronically Signed: Ayaan Reyna MD at 10:46 EST , Discharge Plan Triage Chief Complaint: Fall ED Provider: Ciro Greene Dx/Rx/DC Orders Clinical Impression: Forehead laceration Instructions: ED Laceration: All Closures Prescriptions: No Action risperidone 2 MG tablet 2 mg PO QHS RF: 0 metformin 1,000 MG tablet 1,000 mg PO BIDCM RF: 0 polyethylene glycol 3350 17 GM Packet 17 g PO DAILY PRN PRN (Reason: Constipation) RF: 0 sertraline [Zoloft] 25 MG tablet 50 mg PO DAILY RF: 0 bupropion HCl [Wellbutrin SR] 200 MG tablet 200 mg PO BID RF: 0 Gabapentin 300 mg PO TID RF: 0 clopidogrel 75 MG tablet 75 mg PO DAILY RF: 0 pyridoxine (vitamin B6) 50 MG tablet 100 mg PO DAILY RF: 0 topiramate [Topamax] 50 MG tablet 100 mg PO BID RF: 0 isosorbide mononitrate 30 mg tablet extended release 24 hr 30 mg PO DAILY RF: 0 simvastatin 40 MG tablet 40 mg PO QHS RF: 0 pantoprazole 40 MG tablet 40 mg PO DAILY RF: 0 diphenhydramine HCl 25 MG capsule 25 mg PO DAILY RF: 0 nitroglycerin 0.4 MG tablet, sublingual 0.4 mg SL .COMPLEX RF: 0 folic acid 1 MG tablet 1 mg PO DAILY RF: 0 metoprolol succinate 25 MG tablet extended release 24 hr 25 mg PO DAILY RF: 0 epinephrine 0.3 MG syringe 0.3 mg IM X1 RF: 0 albuterol sulfate 1 PUFF inhaler 2 puff inhalation Q4H PRN PRN (Reason: Wheezing) RF: 0 ondansetron 4 mg tablet,disintegrating 4 mg PO Q8H PRN PRN (Reason: Nausea) RF: 0 sulfamethoxazole-trimethoprim 1 EACH tablet 2 ea PO DAILY RF: 0 aspirin 81 MG tablet 81 mg PO DAILY@0800 RF: 0 conjugated estrogens 1 DOSE cream 1 dose vaginal DAILY RF: 0 Primary Care Provider: Roberto Mcgill Referrals: Roberto Mcgill MD [Primary Care Provider] - 5 Days for suture removal Disposition Disposition: Home, Self Care
[2021-08-20] MEDS: Lidocaine/Epi/Tetracaine 50 ML 1 APPLIC TOPICAL (11:00)
--- NOTE | 2021-08-20 11:01 | ED.RN ---
this rn went to apply let as per orders. pt dressing from ems removed. pt wound immediately bleeding, running down pt face. blood squirting out of laceration. pressure and new dressing applied. dr. yeager informed. pt maintains a position of comfort laying flat.
[2021-08-20 11:53] VITALS: BP 158/81; PULSE 79; RESP 18; O2SAT 100
[2021-08-20] MEDS: Lidocaine 1% (20 ml mdv) 20 ML Vial 5 ML INFILT (11:56)
== END 2021-08-20 12:22 | disposition home or self-care (01) ==
PROVIDERS: Emergency Provider Emergency Medicine; PCP Family Medicine; Visit Provider Emergency Medicine
DX: S01.81XA Laceration without foreign body of other part of head, initial encounter (principal); W01.190A Fall on same level from slipping, tripping and stumbling with subsequent striking against furniture, initial encounter; Z86.73 Personal history of transient ischemic attack (TIA), and cerebral infarction without residual deficits; Z87.891 Personal history of nicotine dependence
CPT/HCPCS: 12011; 70450; 72125; 90471; 90715; 99285

== ENCOUNTER 2022-02-03 14:47 | Emergency (ER) | payer MEDICARE, SELFPAY ==
[2022-02-03 14:50] VITALS: BP 126/74; PULSE 78; RESP 16; TEMP 36.4; O2SAT 98; BMI 26.6
--- NOTE | 2022-02-03 15:08 | MRI_ITS ---
STUDY: MR Spine Lumbar W/O Contrast 02/03/2022 6:36 PM REASON FOR EXAM: Female, 71 years old. Back pain low back pain, decreased rectal tone no anal wink --, rt leg pain TECHNIQUE: MR Spine Lumbar W/O Contrast Standardized fat and water weighted pulse sequences were obtained. COMPARISON: None FINDINGS: T12-L1: Normal endplates. Normal disc height, hydration and morphology. Normal bilateral facet joints. Normal central canal and bilateral lateral recesses. Normal bilateral intervertebral neural foramina. Normal lumbar lordosis. There is no substantial scoliosis. Normal conus medullaris that terminates at the L1. L1-2: Normal endplates. Normal disc height and morphology. Normal central canal and intervertebral neuroforamina. L2-3: Normal endplates. Normal disc height, hydration and morphology. Normal bilateral facet joints. Normal central canal and bilateral lateral recesses. Normal bilateral intervertebral neural foramina. L3-4: Loss of intervertebral disc height. There is endplate spondylosis of the vertebral body. Normal central canal and intervertebral neuroforamina. There is bilateral facet arthropathy. There is bilateral ligamentum flavum thickening. L4-5: Loss of intervertebral disc height. There is endplate spondylosis of the vertebral body. Normal central canal and intervertebral neuroforamina. There is bilateral facet arthropathy. Grade 1 anterolisthesis of L4 on L5. L5-S1: Loss of intervertebral disc height. There is endplate spondylosis of the vertebral body. There is bilateral facet arthropathy. Narrowing of the right intervertebral neuroforamina. Normal visualized sacral ala. Normal visualized paraspinous soft tissue structures. MRI/Spine Lumbar (Routine) IMPRESSION: Multilevel degenerative changes of the lower lumbar spine, as described above. L5-S1: Narrowing of the right intervertebral neuroforamina. Electronically Signed: Shay Mullins MD at 18:46 EDT Reading Location ID and State: [facility] / [place] , Service support ,
--- NOTE | 2022-02-03 15:20 | EDS_ITS ---
HPI History of Present Illness Chief Complaint: Back Detail of Chief Complaint: Low back pain 3 to 4 weeks radiating down the posterior aspect of the right Informant: patient Onset/Context/Timing Onset: Weeks Context: Sudden Onset Injury: - (No history of trauma) Timing: Continuous Quality: Dull and Aching Location: Lumbar and Right Leg Current Severity: Moderate Maximum Severity: Severe Worsened by: improves with Movement, Ambulation, Bending, Lifting and - (Lying on her side) Relieved by: Nothing Associated Symptoms Associated Symptoms: Radiation to Right Leg, Fecal Incontinence and - (Patient reports foot drop and abnormal sensation when she wipes. Patient denies buckling of her knee.); Negative for Numbness, Tingling, Fever, Abdominal Pain, Dysuria, Unable to Ambulate, Unable to Transfer, Urinary Retention, Urinary Incontinence or Constipation Narrative Narrative: Patient is a 71-year-old woman who presents because of worsening back pain. She states she is dragging her right leg. She denies buckling of her knees going up or down steps. She does report numbness in the perineal region for the past 2 weeks. She had x-rays as an outpatient that were interpreted by radiologist as degenerative disc disease. She denies fever, chills night sweats. She denies urologic symptoms. She denies any recent dental procedure or any type of procedure. There is no trauma. She denies weight loss or night sweats. She does give symptoms of claudication for the past year. She has not had hair on her toes for some time. She is a smoker. She also has history of diabetes. She denies history of diabetic neuropathy. There is also a history of chronic pain syndrome per medical records. [facility] Medical History CVA (cerebral vascular accident) Heart attack Home Medications metformin 1,000 mg tablet 1,000 mg PO BIDCM dm 03/10/14 [History Last Taken 03/16/20 16:00] risperidone 2 mg tablet 2 mg PO QHS bipolar 03/10/14 [History Last Taken 03/15/20 19:00] bupropion HCl 200 mg tablet,12 hr sustained-release (Wellbutrin SR) 200 mg PO BID bipolar 03/07/15 [History Last Taken 03/16/20 16:00] polyethylene glycol 3350 17 gram oral powder packet 17 g PO DAILY PRN PRN Constipation 03/07/15 [History Last Taken 07/09/18] sertraline 25 mg tablet (Zoloft) 50 mg PO DAILY depression 03/07/15 [History Last Taken 03/16/20 07:00] Gabapentin 300 mg PO TID neuropathy 07/12/15 [History Last Taken 03/16/20 16:00] clopidogrel 75 mg tablet 75 mg PO DAILY blood thinner 04/13/17 [History Last Taken 03/16/20 07:00] pyridoxine (vitamin B6) 50 mg tablet 100 mg PO DAILY vitamin 04/13/17 [History Last Taken 03/16/20 12:00] topiramate 50 mg tablet (Topamax) 100 mg PO BID blood pressure 07/10/18 [History Last Taken 03/16/20 07:00] albuterol sulfate 90 mcg/actuation aerosol inhaler 2 puff inhalation Q4H PRN PRN Wheezing 09/10/19 [History Last Taken Unknown] diphenhydramine HCl 25 mg capsule 25 mg PO DAILY 09/10/19 [History Last Taken Unknown] epinephrine 0.3 mg/0.3 mL injection, auto-injector 0.3 mg IM X1 09/10/19 [History Last Taken Unknown] folic acid 1 mg tablet 1 mg PO DAILY 09/10/19 [History Last Taken 03/16/20 12:00] isosorbide mononitrate 30 mg tablet,extended release 24 hr 30 mg PO DAILY 09/10/19 [History Last Taken 03/16/20 07:00] metoprolol succinate 25 mg tablet,extended release 24 hr 25 mg PO DAILY 09/10/19 [History Last Taken 03/16/20 07:00] nitroglycerin 0.4 mg sublingual tablet 0.4 mg SL .COMPLEX 09/10/19 [History Last Taken 03/16/20 14:00] ondansetron 4 mg disintegrating tablet 4 mg PO Q8H PRN PRN Nausea 09/10/19 [History Last Taken Unknown] pantoprazole 40 mg tablet,delayed release 40 mg PO DAILY 09/10/19 [History Last Taken 03/16/20 05:45] simvastatin 40 mg tablet 40 mg PO QHS 09/10/19 [History Last Taken 03/15/20 19:00] aspirin 81 mg tablet,delayed release 81 mg PO DAILY@0800 03/16/20 [History Last Taken 03/16/20 07:00] conjugated estrogens 0.625 mg/gram vaginal cream 1 dose vaginal DAILY Check with primary doctor 03/16/20 [History Last Taken Unknown] sulfamethoxazole 400 mg-trimethoprim 80 mg tablet 2 ea PO DAILY 03/16/20 [History Last Taken 03/16/20 16:00] oxycodone-acetaminophen 5 mg-325 mg tablet 1 tab PO Q6H PRN PRN pain 5 days #20 TABLETS 02/03/22 [Rx Last Taken Unknown] Allergy/AdvReac Type Severity Reaction Status Date / Time carbamazepine [From Tegretol] Allergy Fever and Verified 02/03/22 14:54 skin rash latex Allergy Rash Verified 02/03/22 14:54 Penicillins Allergy Rash Verified 02/03/22 14:54 venom-honey bee Allergy Anaphylaxis Verified 02/03/22 14:54 [bee venom (honey bee)] ibuprofen [From Motrin] AdvReac Upset Verified 02/03/22 14:54 Stomach Surgical History History of total knee replacement Social History (Updated 02/03/22 @ 15:[address] Pb Moncada MD) household members: significant other Smoking Status: Current every day smoker tobacco type: cigarettes alcohol intake: current substance use type: does not use ROS ROS ED Constitutional Constitutional ED: Denies chills, fever(s), subjective, sweats or weight loss Eyes Eyes: Denies blurry vision, change in vision or diplopia ENT ENT ED: Denies ear pain, rhinorrhea or sore throat Cardiovascular Cardiovascular: Denies chest pain, orthopnea, palpitations or paroxysmal nocturnal dyspnea Respiratory/Chest Respiratory/Chest: Denies dyspnea, dyspnea on exertion, orthopnea or paroxysmal nocturnal dyspnea Gastrointestinal Gastrointestinal: Denies abdominal pain, constipation, diarrhea, melena, nausea or vomiting Genitourinary Genitourinary ED: Denies dysuria, hematuria or urinary frequency Musculoskeletal Musculoskeletal: Reports back pain; Denies arthralgias, myalgias or neck pain Integumentary Denies abscess or rash Neurologic Neurologic: Reports weakness; Denies headache(s) or paresthesias Psychiatric Psychiatric: Denies anxiety or depression Endocrine Endocrinology: Denies cold intolerance or heat intolerance EXAM Physical Exam Const Vital Signs: 02/03/22 14:50 Temperature 97.5 F L Temperature Source Temporal Pulse Rate 78 Respiratory Rate 16 Blood Pressure 126/74 H Blood Pressure Mean 91 Pulse Ox 98 Oxygen Delivery Method Room Air Positive well nourished, well developed and obese; Negative for cachectic, contractures or unkempt General Appearance ED: well developed and NAD; Negative for unkempt, cachectic, contractures or pallor Nutritional Appearance: obese; Negative for cachectic HEENT Reports moist mucous membranes Negative for trauma or tenderness Eyes PERRL and EOMs intact bilaterally General Eye ED: Negative for pale conjunctiva or scleral icterus Neck no lymphadenopathy, supple and no JVD Resp normal respiratory effort and clear to auscultation bilaterally Cardio regular rate, regular rhythm, S1 normal heart sound, S2 normal heart sound and no murmurs GI normal to inspection, nondistended, normoactive bowel sounds, soft to palpation, non-tender, non-distended and no masses Back/Spine normal to inspection and no thoracic nor lumbar tenderness General Back: Negative for CVA tenderness Cervical Spine: Negative for cervical spine tenderness and Negative for paracervical muscle tenderness Thoracic Spine / Upper Back: Negative for paraspinal muscle tenderness Lumbar Spine / Lower Back: ROM limited and straight leg raise positive right at 40 degrees Extremity no clubbing, cyanosis or edema Extremity Narrative: Lack of hair on toes. Neuro oriented x3 Neuro Narrative: Altered sensation right lower leg. Altered perianal sensation as well. Poor rectal tone. No anal wink noted. Sensorium / Orientation: alert Motor Exam: Negative for strength 5/5 throughout Deep Tendon Reflexes: Rt Patellar (L4): 2+, Lt Patellar (L4): 2+, Rt Ankle (S1): 1+ and Lt Ankle (S1): 2+ Deep Tendon Reflexes Back: Rt Patellar (L4): 2+, Lt Patellar (L4): 2+, Rt Ankle (S1): 1+ and Lt Ankle (S1): 2+ Plantar Reflex: Downgoing: bilateral (No Babinski sign.) Psych mental status grossly normal Appearance: Negative for unkempt Skin no rashes or lesions noted and no wounds General Skin Exam: Negative for jaundice or pallor MDM MDM MDM Narrative Medical decision making narrative: With objective neurologic findings absence of anal wink decreased rectal tone concern patient may have cauda equina or other causes for neurologic findings. MRI was obtained without contrast since she has no prior history of back surgery. She has been medicated in the past for claustrophobia. Will medicate for pain and give antianxiety attic. Lab Data Attestation: I reviewed the patient's lab results. Lab results narrative: CBC is unremarkable. Basic metabolic panel is remarkable for CO2 of 20 with anion gap of 8. Creatinine has increased from 1.37-2.19. BUN is elevated 34. Glucose is slightly elevated 135. Suspect patient's elevated BUN/creatinine are due to use of NSAIDs in patient with diabetes and renal insufficiency. Labs: Laboratory Results - last 24 hr 02/03/22 02/03/22 15:22 15:22 WBC 7.1 RBC 4.37 Hgb 13.0 Hct 40.5 MCV 92.7 MCH 29.7 MCHC 32.1 RDW Std Deviation 51.5 H RDW Coeff of Isaiah 15.1 H Plt Count 226 MPV 11.5 Immature Gran % (Auto) 0.600 Neut % (Auto) 61.0 Lymph % (Auto) 26.4 [place] % (Auto) 8.8 Eos % (Auto) 2.8 Baso % (Auto) 0.4 Absolute Neuts (auto) 4.3 Absolute Lymphs (auto) 1.88 Nucleated RBC % 0 Sodium 142 Potassium 3.7 Chloride 114 H Carbon Dioxide 20.0 L Anion Gap 8 BUN 34 H Creatinine 2.19 H Estim Creat Clear Calc 23.58 Est GFR (MDRD) Af Amer 29 L Est GFR (MDRD) Non-Af 24 L BUN/Creatinine Ratio 15.5 Glucose 135 H Calcium 9.2 Radiography Diagnostic Testing: Clinical Impression(s) from Imaging Studies Lumbar Spine MRI 02/03/22 15:08 IMPRESSION: Multilevel degenerative changes of the lower lumbar spine, as described above. L5-S1: Narrowing of the right intervertebral neuroforamina. Electronically Signed: Shay Mullins MD at 18:46 EDT , Discharge Plan Triage Chief Complaint: Back ED Provider: Pb Moncada Dx/Rx/DC Orders Clinical Impression: Lumbosacral radiculopathy at L5, Diabetes type 2, controlled, Hypertension, Acute on chronic renal insufficiency Instructions: ED Sciatica, ED Renal Insufficiency Prescriptions: New oxycodone-acetaminophen [oxycodone-acetaminophen] 5-325 mg tablet 1 tab PO Q6H PRN PRN (Reason: pain) 5 Days Qty: 20 0RF No Action risperidone 2 MG tablet 2 mg PO QHS Label Comments: schizoaffective disorder metformin 1,000 MG tablet 1,000 mg PO BIDCM Label Comments: BLOOD SUGAR polyethylene glycol 3350 17 GM powder in packet 17 g PO DAILY PRN PRN (Reason: Constipation) Label Comments: CONSTIPATION sertraline [Zoloft] 25 MG tablet 50 mg PO DAILY Label Comments: depression bupropion HCl [Wellbutrin SR] 200 MG tablet 200 mg PO BID Label Comments: DEPRESSION Gabapentin 300 mg PO TID clopidogrel 75 MG tablet 75 mg PO DAILY pyridoxine (vitamin B6) 50 MG tablet 100 mg PO DAILY Label Comments: DOSE UNKNOWN topiramate [Topamax] 50 MG tablet 100 mg PO BID isosorbide mononitrate 30 mg tablet extended release 24 hr 30 mg PO DAILY simvastatin 40 MG tablet 40 mg PO QHS pantoprazole 40 MG tablet 40 mg PO DAILY diphenhydramine HCl 25 MG capsule 25 mg PO DAILY nitroglycerin 0.4 MG tablet, sublingual 0.4 mg SL .COMPLEX Rx Instructions: 1 tab every 5 minutes x 3 folic acid 1 MG tablet 1 mg PO DAILY metoprolol succinate 25 MG tablet extended release 24 hr 25 mg PO DAILY epinephrine 0.3 MG syringe 0.3 mg IM X1 albuterol sulfate 1 PUFF inhaler 2 puff inhalation Q4H PRN PRN (Reason: Wheezing) ondansetron 4 mg tablet,disintegrating 4 mg PO Q8H PRN PRN (Reason: Nausea) sulfamethoxazole-trimethoprim 1 EACH tablet 2 ea PO DAILY Rx Instructions: x7 days for uti aspirin 81 MG tablet 81 mg PO DAILY@0800 conjugated estrogens 1 DOSE cream 1 dose vaginal DAILY Primary Care Provider: Roberto Mcgill Referrals: Roberto Mcgill MD [Primary Care Provider] - 1 Week if not improving Activity Restrictions/Additional Instructions: 1. You will need to follow-up with Dr. Mcgill for blood work to assess your kidney function 2. You should not take ibuprofen, Aleve or any anti-inflammatory medication because this may lead to renal failure 3. Apply ice to your back 6-10 times a day Disposition Disposition: Home, Self Care
[2022-02-03 15:32] LABS: Absolute Lymphocyte Count 1.88 X10^3/uL (0.83-4.51); Absolute Neutrophil Count 4.3 X10^3/uL (2.0-7.7); Basophil# 0.03 X10^3/uL; Basophil% 0.4 % (0-1); Eosinophils% 2.8 % (0-5); Hematocrit 40.5 % (37-47); Lymphocyte # 1.88 X10^3/ul (0.83-4.51); Lymphocyte % 26.4 % (19-41); Mean Corp Hgb Conc 32.1 g/dL (32-36); Mean Corpuscular Hgb 29.7 pg (27.0-32.0); Mean Corpuscular Volume 92.7 fL (81-99); Mean Platelet Vol. 11.5 fl (6.2-12.0); Monocyte# 0.63 X10^3/uL; Monocyte% 8.8 % (0-10); NRBC Flagged by Analyzer 0 % (0-5); Neutrophil # 4.34 X10^3/uL (2.7-7.7); Platelet Count 226 K/mm3 (150-450); RBC Distribution Width CV 15.1 % (11.6-14.6); RBC Distribution Width SD 51.5 fl (35.1-43.9); Red Blood Count 4.37 M/mm3 (4.2-5.4); White Blood Count 7.1 K/mm3 (4.4-11.0)
[2022-02-03] MEDS: Morphine 4 MG/ML Syringe IV (15:33)
[2022-02-03] MEDS: Ondansetron 4 MG/2 ML Vial IV (15:33)
[2022-02-03] MEDS: LORazepam 2 MG/ML Syringe 1 MG IV (15:34)
[2022-02-03 15:47] LABS: Anion Gap 8 (5-15); BUN 34 mg/dL (7-18); BUN/Creat Ratio 15.5 RATIO (10-20); Calcium,Total 9.2 mg/dL (8.5-10.1); Chloride 114 mmol/L (98-107); Creatinine, Serum 2.19 mg/dL (0.55-1.02); EST Glomerular Filtration Rate 24 mL/min (>60); Est Glom Filt Rate - Afr Amer 29 mL/min (>60); Estimated Creatinine Clearance 23.58 ml/min; Glucose 135 mg/dL (74-106); Potassium 3.7 mmol/L (3.5-5.1); Sodium Level 142 mmol/L (136-145)
[2022-02-03 18:47] VITALS: BP 122/69
[2022-02-03 19:54] VITALS: RESP 16
== END 2022-02-03 20:07 | disposition home or self-care (01) ==
PROVIDERS: Emergency Provider Emergency Medicine; PCP Family Medicine; Visit Provider Emergency Medicine
DX: M54.17 Radiculopathy, lumbosacral region (principal); E11.22 Type 2 diabetes mellitus with diabetic chronic kidney disease; I12.9 Hypertensive chronic kidney disease with stage 1 through stage 4 chronic kidney disease, or unspecified chronic kidney disease; N18.9 Chronic kidney disease, unspecified; I25.2 Old myocardial infarction; E66.9 Obesity, unspecified; F17.210 Nicotine dependence, cigarettes, uncomplicated; Z68.26 Body mass index [BMI] 26.0-26.9, adult; Z79.82 Long term (current) use of aspirin; Z79.84 Long term (current) use of oral hypoglycemic drugs; Z79.899 Other long term (current) drug therapy; Z86.73 Personal history of transient ischemic attack (TIA), and cerebral infarction without residual deficits
CPT/HCPCS: 72148; 80048; 85025; 96374; 96375; 99283; J7050; A4216; J2405

== ENCOUNTER 2022-06-02 11:29 | Emergency (ER) | payer MEDICARE, SELFPAY ==
[2022-06-02 11:30] VITALS: BP 121/80; PULSE 91; RESP 18; TEMP 36.6; O2SAT 97; BMI 25.5
--- NOTE | 2022-06-02 11:45 | CT_ITS ---
STUDY: CT CERVICAL SPINE WITHOUT CONTRAST REASON FOR EXAM: Female, 71 years old. Neck injury due to a fall. RADIATION DOSAGE (If Supplied By Facility): CTDIvol = ( 19.59 ) mGy, DLP = ( 490.49 ) mGycm TECHNIQUE: High resolution transaxial imaging was performed without contrast material. Sagittal and coronal images were reconstructed. Individualized dose optimization techniques were used for this CT. COMPARISON: Comparison is made with prior study dated 08/20/2021. FINDINGS: Normal craniovertebral junction. There are degenerative changes of the anterior atlantoaxial articulation. Normal odontoid process. There is straightening of the normal cervical lordosis. Normal vertebral bodies and posterior osseous elements. C2-3: Minimal anterolisthesis of C2 on C3 due to the hypertrophy of the right facet joint with cystic changes. C3-4: Mild degree of disc space narrowing. Facet joint osteoarthritis and hypertrophy worse on the right side. Uncovertebral arthrosis. Moderate degree of right neuroforaminal stenosis. C4-5: Hypertrophy of the facet joints worse on the right side. Mild degree of right neural foraminal stenosis. C5-6: Moderate degree of disc space narrowing and spondylosis. Uncovertebral arthrosis. Mild to moderate degree of right neural foraminal stenosis. C6-7: Mild degree of disc space narrowing. C7-T1: Normal endplates. Normal disc height and morphology. Normal central canal and intervertebral neuroforamina. Atherosclerotic plaque formation of the aortic arch. CT/Spine Cervical without Contras IMPRESSION: Multilevel degenerative changes, as described above. Electronically Signed: Ayaan Reyna MD at 12:31 EST ,
--- NOTE | 2022-06-02 11:45 | CT_ITS ---
STUDY: CT BRAIN WITHOUT CONTRAST REASON FOR EXAM: Female, 71 years old. Head injury due to a fall. RADIATION DOSAGE (If Supplied By Facility): CTDIvol = ( 44.99 ) mGy, DLP = ( 779.24 ) mGycm TECHNIQUE: Transaxial CT imaging of the brain was performed without administration of intravenous contrast material. Individualized dose optimization techniques were used for this CT. COMPARISON: Comparison is made with prior study dated 08/20/2021. FINDINGS: Scalp hematoma overlying the right posterior parietal occipital bones. Overlying laceration. Normal calvarium. There is mild cerebral atrophy with widening of the extra-axial spaces and ventricular dilatation. Normal white matter tracts of the cerebral hemispheres. Normal basal ganglia and thalami. Normal brainstem. Normal cerebellum. There is no intracranial hemorrhage. There are no findings of an acute ischemic infarction. Normal visualized paranasal sinuses. CT/Brain/Head without Contrast IMPRESSION: Chronic involutional changes of the brain. Scalp hematoma overlying the posterior right parietal occipital bones. Electronically Signed: Ayaan Reyna MD at 12:28 EST ,
--- NOTE | 2022-06-02 11:49 | EX.ED.GENINJ ---
HPI History of Present Illness Chief Complaint: Fall Informant: patient Narrative Narrative: Patient was carrying boxes up steps. She states she was on the second step and foot was moving toward the third. The boxes came apart causing her to lose her balance fall and hit her head. She did not lose consciousness. She states she does not even have a headache. But she is on Plavix and aspirin so she does bleed easily. She states nothing really hurts at all. She feels normal. She does have bleeding but it is controlled with pressure. [facility] Medical History CVA (cerebral vascular accident) Heart attack Home Medications metformin 1,000 mg tablet 1,000 mg PO BIDCM dm 03/10/14 [History Last Taken 03/16/20 16:00] risperidone 2 mg tablet 2 mg PO QHS bipolar 03/10/14 [History Last Taken 03/15/20 19:00] bupropion HCl 200 mg tablet,12 hr sustained-release (Wellbutrin SR) 200 mg PO BID bipolar 03/07/15 [History Last Taken 03/16/20 16:00] polyethylene glycol 3350 17 gram oral powder packet 17 g PO DAILY PRN PRN Constipation 03/07/15 [History Last Taken 07/09/18] sertraline 25 mg tablet (Zoloft) 50 mg PO DAILY depression 03/07/15 [History Last Taken 03/16/20 07:00] Gabapentin 300 mg PO TID neuropathy 07/12/15 [History Last Taken 03/16/20 16:00] clopidogrel 75 mg tablet 75 mg PO DAILY blood thinner 04/13/17 [History Last Taken 03/16/20 07:00] pyridoxine (vitamin B6) 50 mg tablet 100 mg PO DAILY vitamin 04/13/17 [History Last Taken 03/16/20 12:00] topiramate 50 mg tablet (Topamax) 100 mg PO BID blood pressure 07/10/18 [History Last Taken 03/16/20 07:00] albuterol sulfate 90 mcg/actuation aerosol inhaler 2 puff inhalation Q4H PRN PRN Wheezing 09/10/19 [History Last Taken Unknown] diphenhydramine HCl 25 mg capsule 25 mg PO DAILY 09/10/19 [History Last Taken Unknown] epinephrine 0.3 mg/0.3 mL injection, auto-injector 0.3 mg IM X1 09/10/19 [History Last Taken Unknown] folic acid 1 mg tablet 1 mg PO DAILY 09/10/19 [History Last Taken 03/16/20 12:00] isosorbide mononitrate 30 mg tablet,extended release 24 hr 30 mg PO DAILY 09/10/19 [History Last Taken 03/16/20 07:00] metoprolol succinate 25 mg tablet,extended release 24 hr 25 mg PO DAILY 09/10/19 [History Last Taken 03/16/20 07:00] nitroglycerin 0.4 mg sublingual tablet 0.4 mg SL .COMPLEX 09/10/19 [History Last Taken 03/16/20 14:00] ondansetron 4 mg disintegrating tablet 4 mg PO Q8H PRN PRN Nausea 09/10/19 [History Last Taken Unknown] pantoprazole 40 mg tablet,delayed release 40 mg PO DAILY 09/10/19 [History Last Taken 03/16/20 05:45] simvastatin 40 mg tablet 40 mg PO QHS 09/10/19 [History Last Taken 03/15/20 19:00] aspirin 81 mg tablet,delayed release 81 mg PO DAILY@0800 03/16/20 [History Last Taken 03/16/20 07:00] conjugated estrogens 0.625 mg/gram vaginal cream 1 dose vaginal DAILY Check with primary doctor 03/16/20 [History Last Taken Unknown] sulfamethoxazole 400 mg-trimethoprim 80 mg tablet 2 ea PO DAILY 03/16/20 [History Last Taken 03/16/20 16:00] oxycodone-acetaminophen 5 mg-325 mg tablet 1 tab PO Q6H PRN PRN pain 5 days #20 TABLETS 02/03/22 [Rx Last Taken Unknown] Allergy/AdvReac Type Severity Reaction Status Date / Time carbamazepine [From Tegretol] Allergy Fever and Verified 06/02/22 11:33 skin rash latex Allergy Rash Verified 06/02/22 11:33 Penicillins Allergy Rash Verified 06/02/22 11:33 venom-honey bee Allergy Anaphylaxis Verified 06/02/22 11:33 [bee venom (honey bee)] ibuprofen [From Motrin] AdvReac Upset Verified 06/02/22 11:33 Stomach Surgical History History of total knee replacement Social History household members: significant other Smoking Status: Current every day smoker tobacco type: cigarettes alcohol intake: current substance use type: does not use ROS ROS ED Constitutional Constitutional ED: Denies chills or fever(s) Eyes Eyes: Denies blurry vision or change in vision ENT ENT ED: Denies sore throat Cardiovascular Cardiovascular: Denies chest pain, palpitations or racing heartbeat Respiratory/Chest Respiratory/Chest: Denies cough Gastrointestinal Gastrointestinal: Denies nausea or vomiting Musculoskeletal Musculoskeletal: Denies back pain or neck pain Integumentary Reports Abrasions and other Details: Inspected laceration on posterior right scalp. Neurologic Neurologic: Denies headache(s), paresthesias or weakness Hematologic/Lymphatic Hematologic/Lymphatic: Reports easy bleeding and easy bruising Allergic/Immunologic Allergic/Immunologic ED: Denies urticaria EXAM Physical Exam Const Vital Signs: 06/02/22 11:30 06/02/22 12:10 06/02/22 12:10 Temperature 97.9 F Temperature Source Temporal Pulse Rate 91 76 Respiratory Rate 18 Respiratory Effort Normal Non-Labored Respiratory Pattern Normal Blood Pressure 121/80 H Blood Pressure Mean 93 Pulse Ox 97 99 99 Oxygen Delivery Method Room Air Room Air 06/02/22 14:00 Temperature Temperature Source Pulse Rate 78 Respiratory Rate Respiratory Effort Respiratory Pattern Blood Pressure Blood Pressure Mean Pulse Ox 97 Oxygen Delivery Method Room Air Positive well nourished and well developed Constitutional Narrative: Patient is awake and alert. She is holding a towel into her head with 1 hand while she cancels her appointment on her phone with another hand. General Appearance ED: well developed and NAD HEENT HEENT Narrative: Patient has some matted blood and swelling to the posterior right occiput. I see no active or pulsatile bleeding. It seems to be controlled with pressure. But due to the matting, I cannot see the extent of injuries. This will need to be cleansed and scrubbed to better define the injury. Eyes EOMs intact bilaterally Neck Neck Narrative: No spinal tenderness Chest Wall inspection of chest normal and palpation of chest normal Resp normal respiratory effort and clear to auscultation bilaterally Cardio regular rhythm and no murmurs GI normal to inspection, nondistended, normoactive bowel sounds and non-tender Back/Spine normal to inspection and no thoracic nor lumbar tenderness General Back: Negative for CVA tenderness Extremity normal to inspection and full ROM Extremity Narrative: No tenderness of arms or legs or pain with motion. Neuro oriented x3, no focal motor deficits and no sensory deficits noted Sensorium / Orientation: alert, oriented to person, oriented to place and oriented to time; Negative for orientation impaired, lethargic or stuporous Psych mental status grossly normal Skin Skin Narrative: See above regarding head wound on posterior right occipital area. MDM MDM MDM Narrative Medical decision making narrative: Further exam right scalp was done after copious cleaning and the hair. We found a 4 cm laceration the posterior right occiput. At this point it was no longer bleeding but there was clot in place. Procedure: stapled laceration of scalp: Discussed options with patient. We went over risk benefits. The area was scrubbed and cleaned by myself. We are able to find the upper portion of the laceration. This was anesthetized with 1% lidocaine with epinephrine. Over the course of the entire laceration 5 cc were used. I placed 3 saima and the upper portion of the laceration. We then further cleaned down below. There was a clot present more in the lower portion. This was copiously scrubbed and irrigated and removed. All clot was removed from the wound. I do not feel a deeper defect. I was surprised that there is no active bleeding after clot removal. We placed 4 more saima. A total of 7 saima were placed. She tolerated this well. We have then further cleaned the rest of the head. There is no sign of any other lacerations or injuries. Patient's gotten up and walked. She does use a cane which is chronic but she walks well stable and feels at her baseline. Plan will be to get her home. We discussed reasons to return. Radiography Diagnostic Testing: Clinical Impression(s) from Imaging Studies Brain CT 06/02/22 11:45 IMPRESSION: Chronic involutional changes of the brain. Scalp hematoma overlying the posterior right parietal occipital bones. Electronically Signed: Ayaan Reyna MD at 12:28 EST , Cervical Spine CT 06/02/22 11:45 IMPRESSION: Multilevel degenerative changes, as described above. Electronically Signed: Ayaan Reyna MD at 12:31 EST , CT scan of head and neck show chronic but no acute intracranial findings. There is findings of scalp hematoma that matches the clinical exam. Discharge Plan Triage Chief Complaint: Fall ED Provider: Rishabh Grant Dx/Rx/DC Orders Clinical Impression: Accidental fall on or from stairs or steps, Laceration of scalp, Closed wound of head, Coagulopathy Instructions: ED Laceration Scalp Stitches or Saima Prescriptions: No Action risperidone 2 MG tablet 2 mg PO QHS Label Comments: schizoaffective disorder metformin 1,000 MG tablet 1,000 mg PO BIDCM Label Comments: BLOOD SUGAR polyethylene glycol 3350 17 GM powder in packet 17 g PO DAILY PRN PRN (Reason: Constipation) Label Comments: CONSTIPATION sertraline [Zoloft] 25 MG tablet 50 mg PO DAILY Label Comments: depression bupropion HCl [Wellbutrin SR] 200 MG tablet 200 mg PO BID Label Comments: DEPRESSION Gabapentin 300 mg PO TID clopidogrel 75 MG tablet 75 mg PO DAILY pyridoxine (vitamin B6) 50 MG tablet 100 mg PO DAILY Label Comments: DOSE UNKNOWN topiramate [Topamax] 50 MG tablet 100 mg PO BID isosorbide mononitrate 30 mg tablet extended release 24 hr 30 mg PO DAILY simvastatin 40 MG tablet 40 mg PO QHS pantoprazole 40 MG tablet 40 mg PO DAILY diphenhydramine HCl 25 MG capsule 25 mg PO DAILY nitroglycerin 0.4 MG tablet, sublingual 0.4 mg SL .COMPLEX Rx Instructions: 1 tab every 5 minutes x 3 folic acid 1 MG tablet 1 mg PO DAILY metoprolol succinate 25 MG tablet extended release 24 hr 25 mg PO DAILY epinephrine 0.3 MG syringe 0.3 mg IM X1 albuterol sulfate 1 PUFF inhaler 2 puff inhalation Q4H PRN PRN (Reason: Wheezing) ondansetron 4 mg tablet,disintegrating 4 mg PO Q8H PRN PRN (Reason: Nausea) sulfamethoxazole-trimethoprim 1 EACH tablet 2 ea PO DAILY Rx Instructions: x7 days for uti aspirin 81 MG tablet 81 mg PO DAILY@0800 conjugated estrogens 1 DOSE cream 1 dose vaginal DAILY oxycodone-acetaminophen [oxycodone-acetaminophen] 5-325 mg tablet 1 tab PO Q6H PRN PRN (Reason: pain) 5 Days Qty: 20 0RF Primary Care Provider: Roberto Mcgill Referrals: Roberto Mcgill MD [Primary Care Provider] - 7 Days for suture removal Disposition Disposition: Home, Self Care
[2022-06-02 12:10] VITALS: PULSE 76; O2SAT 99
[2022-06-02] MEDS: Lidocaine 2% /Epi 1:100 (20ml) 20 ML VIAL INFILT (13:41)
[2022-06-02 14:00] VITALS: PULSE 78; O2SAT 97
== END 2022-06-02 15:15 | disposition home or self-care (01) ==
PROVIDERS: Emergency Provider Emergency Medicine; PCP Family Medicine; Visit Provider Emergency Medicine
DX: S01.01XA Laceration without foreign body of scalp, initial encounter (principal); D68.9 Coagulation defect, unspecified; W10.9XXA Fall (on) (from) unspecified stairs and steps, initial encounter; F17.210 Nicotine dependence, cigarettes, uncomplicated; Z79.82 Long term (current) use of aspirin; Z79.84 Long term (current) use of oral hypoglycemic drugs; Z79.02 Long term (current) use of antithrombotics/antiplatelets; Z79.899 Other long term (current) drug therapy; I25.2 Old myocardial infarction; Z86.73 Personal history of transient ischemic attack (TIA), and cerebral infarction without residual deficits
CPT/HCPCS: 12002; 70450; 72125; 99283

== ENCOUNTER 2024-10-28 10:49 | Outpatient (CLI) | payer MEDICARE, SELFPAY ==
[2024-10-28 11:11] VITALS: BP 101/47; PULSE 78; RESP 16; TEMP 36.5; O2SAT 100; BMI 22.8
[2024-10-28 11:47] VITALS: BP 89/39; PULSE 80; RESP 16; TEMP 36.4; O2SAT 100
[2024-10-28 12:52] VITALS: BP 107/42; PULSE 83; RESP 16; TEMP 36.5; O2SAT 100
[2024-10-28 13:28] VITALS: BP 95/42; PULSE 79; RESP 16; TEMP 36.5; O2SAT 100
[2024-10-28 13:34] VITALS: BP 95/42; PULSE 79; RESP 16; TEMP 36.5; O2SAT 100
== END 2024-10-28 23:59 | disposition home or self-care (01) ==
LOC: MEDOUTP 10:51
PROVIDERS: PCP Family Medicine; Referring Provider Specialist; Visit Provider Specialist
DX: D50.0 Iron deficiency anemia secondary to blood loss (chronic) (principal)
CPT/HCPCS: 36430; 86850; 86900; 86901; P9016; A4216